=== PATIENT | male | born 1960 | race Caucasian/White ===

== ENCOUNTER 2020-08-11 09:52 | Inpatient (IN) ==
--- NOTE | 2020-07-15 13:35 | PAT Medication Instructions ---
Medication Instructions Date of Service July 15, 2020 Home Medications aspirin [Aspir-81] 81 mg PO QAM lisinopril 10 mg PO QAM meloxicam 7.5 mg PO QAM metformin 500 mg PO BID rosuvastatin 10 mg PO QAM ASK your surgeon for instructions meloxicam 7.5 mg PO QAM DO NOT take the morning of surgery lisinopril 10 mg PO QAM Take morning of surgery With a small sip of water, OTHERWISE NOTHING TO EAT OR DRINK AFTER MIDNIGHT: aspirin [Aspir-81] 81 mg PO QAM rosuvastatin 10 mg PO QAM Take evening before surgery metformin 500 mg PO BID Other Notes If you have any questions please call us at [phone] or [phone] or [phone] or [phone]
--- NOTE | 2020-07-15 13:55 | Anesthesiology Consultation ---
Date of Service July 15, 2020 Assessment & Plan (1) Encounter for pre-operative examination: COVID Status: As of 07/15 assessment, patient denies travel to endemic area, known exposure/sick contacts, or symptoms of COVID19. Patient instructed that they and their household members must follow strict social distancing guidelines, wear a mask in public and avoid travel for 14 days prior to surgery. Preoperative COVID19 testing to be completed prior to surgery per surgeon's arra ngdenis. Patient made aware to self-isolate as much as possible between COVID testing and surgery. Chart Review Chart Review: Acceptable Risk for Surgery and Patient seen in Pre Admission Testing Teaching & Discussion Instructed NPO after midnight before surgery, except medications with 15 cc of water. Medication instructions provided according to the PAT guidelines. History Surgery Operation Date: 08/11/20 09:15 Proposed Procedures p Left Total Knee Arthroplasty - Hermes Acuña DO Height/Weight Height: 5 ft 10 in Weight: 92.5 kg Allergies Allergy/AdvReac Type Severity Reaction Status Date / Time No Known Allergies Allergy Verified 07/13/20 08:12 Medications Home Medications Medication Instructions Recorded Confirmed Last Taken aspirin [Aspir-81] 81 mg PO QAM 07/13/20 07/13/20 Unknown meloxicam 15 mg PO QAM 07/13/20 07/15/20 Unknown metformin 500 mg PO BID 07/13/20 07/13/20 Unknown lisinopril-hydrochlorothiazide 1 tab PO QAM 07/15/20 07/15/20 Unknown multivitamin with minerals [Men's 1 tab PO QAM 07/15/20 07/15/20 Unknown One Daily] pravastatin 40 mg PO QAM 07/15/20 07/15/20 Unknown Past Medical History Medical History (Updated 07/16/20 @ 10:31 by Sudhir Joya) Cervical stenosis of spine Diabetes mellitus, type 2 on metformin daily History of anesthesia reaction per 2012 records, (see Dr. Vic Joshua's progress note), pt had an episode of hypotension (82/43) in PACU after lumbar spinal fusion @ [facility] on 07/2013, normalized/corrected with IV fluids and ephedrine, no further issues noted Pt stated that is the only time he has ever had an issue with anesthesia. Hyperlipidemia Hypertension Osteoarthritis Tinnitus of both ears Transient ischemic attack (TIA) roughly 2009 ? now on ASA 81mg. Exercise / Class Metabolic Activity II 4-5 Yardwork/Stairs/Walk up hill (currently limited by knee pain) Past Family History Family History Father Family history of diabetes mellitus Mother Family history of diabetes mellitus Family history of reaction to anesthesia difficulty waking Grandmother (Maternal) Family history of diabetes mellitus Uncle Family history of diabetes mellitus Aunt Family history of diabetes mellitus Past Surgical History Surgical History History of arthroscopy of left knee History of arthroscopy of right knee History of carpal tunnel release of both wrists History of colonoscopy with polypectomy History of lumbar spinal fusion History of tooth extraction Past Anesthesia History No Family Hx of Anesthesia Complications and Other Per Dr. Vic Joshua's note pt had an episode of hypotension during lumbar spinal fusion @ [facility] on 07/2013 and received IV fluids and ephedrine, no further issues noted Pt stated that is the only time he has ever had an issue with anesthesia. History of PONV No Hx of PONV and Hx of Motion Sickness (BUT pt reports terrible headache with scopolamine patch) Social History Smoking Status: Never smoker tobacco type: smokeless tobacco Do You Dip or Chew Tobacco: Yes (1 can every 3-4 days, advised none AM DOS) Hx Alcohol Use: Yes Alcohol type: beer alcohol intake frequency: other Alcohol Intake Frequency Comment: roughly 6 beers in a year Hx Substance Use: No substance use type: does not use Review of Systems Pt denies any recent chest pain, shortness of breath, palpitations, cough, fever, URI, or uncontrolled acid reflux. Physical Exam Vital Signs BP: 134/84 P: 89bpm SPO2: 97% RA T: 97.8 F R: 14 ENMT Mouth: + dental restorations (many crowns) and + small oral opening; no chipped teeth and no loose teeth Mallampati Class: III Neck normal visual inspection and + facial hair (short [place]); neck extension not limited Respiratory normal respiratory effort Auscultation: lungs clear to auscultation bilaterally Cardiovascular Rate/Rhythm: regular rate and regular rhythm Heart Sounds: no murmur Extremities: no edema Testing Laboratory Results 07/15/20 14:05 07/15/20 14:05 PT 10.3 Seconds (9.0-12.0) 07/15/20 14:05 INR 1.0 (0.9-1.1) 07/15/20 14:05 APTT 26.5 Seconds (21.0-31.0) 07/15/20 14:05 Hemoglobin A1c 6.4 % (4.5-5.6) H 07/15/20 14:05 Urine Color Yellow 07/15/20 13:37 Urine Appearance Clear (Clear) 07/15/20 13:37 Urine pH 5.5 (4.5-7.5) 07/15/20 13:37 Ur Specific [place] 1.011 (1.000-1.030) 07/15/20 13:37 Urine Protein Negative (Negative) 07/15/20 13:37 Urine Glucose (UA) Negative (Negative) 07/15/20 13:37 Urine Ketones Negative (Negative) 07/15/20 13:37 Urine Nitrite Negative (Negative) 07/15/20 13:37 Ur Leukocyte Esterase Negative (Negative) 07/15/20 13:37 Blood Type A Positive 07/15/20 14:05 Antibody Screen NEGATIVE 07/15/20 14:05 Electrocardiogram Date: 07/15/20 Findings: + NSR @ (88bpm) Chest X-Ray Date: 07/15/20 Findings: + NAD
[2020-07-15 14:41] LABS: Basophils # (auto) 0.01 K/uL (0-0.2); Basophils % (auto) 0.2 %; Eosinophils # (auto) 0.05 K/uL (0-0.5); Eosinophils % (auto) 0.9 %; Hemoglobin 14.9 g/dL (14.0-18.0); Immature Granulocytes # (auto) 0.02 K/uL (0.00-0.02); Immature Granulocytes % (auto) 0.4 %; Lymphocytes # (auto) 1.66 K/uL (1.2-3.4); Lymphocytes % (auto) 29.1 %; Mean Corpuscular Hgb Conc 35.5 g/dL (32-36); Mean Corpuscular Volume 87.5 fL (80-100); Mean Platelet Volume 9.4 fL (7.4-10.4); Monocytes # (auto) 0.55 K/uL (0.11-0.59); Monocytes % (auto) 9.6 %; Neutrophils # (auto) 3.41 K/uL (1.4-6.5); Neutrophils % (auto) 59.8 %; Platelet Count 296 K/uL (130-400); RDW Coefficient of Variation 12.4 % (11.5-14.5); RDW Standard Deviation 39.7 fL (36.4-46.3)
[2020-07-15 14:52] LABS: Albumin Level 3.8 gm/dl (3.4-5.0); BUN Creatinine Ratio 16.3 (10-20); Calcium 8.9 mg/dl (8.5-10.1); Creatinine Clr Calc Pharmacy 101.7 ml/min; Est GFR (African American) 108.5; Est GFR (Non-African American) 93.6; Potassium 3.7 mmol/L (3.5-5.1)
[2020-07-15 14:55] LABS: Partial Thromboplastin Ratio 0.9; Partial Thromboplastin Time 26.5 Seconds (21.0-31.0); Prothrombin Time 10.3 Seconds (9.0-12.0)
[2020-07-15 14:56] LABS: Appearance Urine Clear (Clear); Bilirubin Urine Negative (Negative); Blood Urine Negative (Negative); Color Urine Yellow; Glucose Urine UA Negative (Negative); Ketones Urine Negative (Negative); Leukocyte Esterase Urine Negative (Negative); Nitrite Urine Negative (Negative); Protein Urine Negative (Negative); Specific Gravity Urine 1.011 (1.000-1.030); Urobilinogen Urine Negative (Negative); pH Urine 5.5 (4.5-7.5)
--- NOTE | 2020-07-15 15:08 | XRay Report ---
TWO VIEW CHEST CLINICAL HISTORY: Preoperative examination. FINDINGS: PA and lateral chest radiographs are obtained. No prior studies are available for compariso n at the time of dictation. The cardiomediastinal silhouette is unremarkable. The lungs and pleural spaces are clear. There is no pneumothorax. The bony thorax appears intact. IMPRESSION: No active disease in the chest. ACT 112: Negative or not required by law. Electronically signed by: Junior Lamas M.D. 07/15/2020 3:06 PM
--- NOTE | 2020-07-15 15:27 | Electrocardiogram Report ---
Test Reason : Blood Pressure : / mmHG Vent. Rate : 088 BPM Atrial Rate : 088 BPM P-R Int : 156 ms QRS Dur : 092 ms QT Int : 366 ms P-R-T Axes : 060 012 025 degrees QTc Int : 442 ms Normal sinus rhythm Normal ECG When compared with ECG of 26-JUL-2013 15:57, No significant change was found Confirmed by Jason Mao ([id number]) on 07/15/2020 3:26:33 PM Referred By: Hermes Acuña Confirmed By:Jason Mao
[2020-07-16 05:42] LABS: Estimated Average Glucose 137 mg/dl; Hemoglobin A1C 6.4 % (4.5-5.6)
--- NOTE | 2020-08-10 09:32 | History & Physical Report ---
Date of Service August 11, 2020 Assessment & Plan (1) Degenerative joint disease of left knee: I have indicated the patient for left total knee replacement. The risks, benefits and complications of surgery were explained to the patient which include but not limited to infection, acute blood loss, DVT/PE, injury to nerves, vessels, bone, soft tissue, arthrofibrosis, chronic pain, failure of the prosthesis, knee dislocation, leg length discrepancy, need for additional surgery, cardiac and pulmonary events and . The patient wished to proceed with surgery and informed consent was obtained at this time. We will plan for ASA BID post-operatively for DVT prophylaxis. Upon discharge the patient will be discharged home with home health services. Appropriate clearances by PCP we re obtained. History of Present Illness Chief Complaint: Left knee pain/DJD Primary Care Provider: Ck Al DO The patient is a 60 year old male who presents with complaints of severe left knee pain and DJD. The patient has failed outpatient conservative treatments to this point which included NSAIDs, IA corticosteroid injection, home e xercise/walking program. The patient's pain and limited function have progressed to the point where they severely hinder their activities of daily living and they no longer tolerate exercise programs. They are requesting to proceed with total knee replacement surgery. Allergies Allergy/AdvReac Type Severity Reaction Status Date / Time No Known Allergies Allergy Verified 08/11/20 10:21 Home Medications Home Medications Medication Instructions Recorded Confirmed Type aspirin [Aspir-81] 81 mg PO QAM 07/13/20 08/11/20 History meloxicam 15 mg PO QAM 07/13/20 08/11/20 History metformin 500 mg PO BID 07/13/20 08/11/20 History lisinopril-hydrochlorothiazide 1 tab PO QAM 07/15/20 08/11/20 History multivitamin with minerals [Men's 1 tab PO QAM 07/15/20 08/11/20 History One Daily] pravastatin 40 mg PO QAM 07/15/20 08/11/20 History Past Med/Surg History Medical History Cervical stenosis of spine Diabetes mellitus, type 2 on metformin daily Hyperlipidemia Hypertension Osteoarthritis Tinnitus of both ears Transient ischemic attack (TIA) roughly 2009 ? now on ASA 81mg. Surgical History History of anesthesia reaction per 2013 records, (see Dr. Vic Joshua's progress note), pt had an episode of hypotension (82/43) in PACU after lumbar spinal fusion @ [facility] on 07/2013, normalized/corrected with IV fluids and ephedrine, no further issues noted Pt stated that is the only time he has ever had an issue with anesthesia. History of arthroscopy of left knee History of arthroscopy of right knee History of carpal tunnel release of both wrists History of colonoscopy with polypectomy History of lumbar spinal fusion History of tooth extraction Family History Father Family history of diabetes mellitus Mother Family history of diabetes mellitus Family history of reaction to anesthesia difficulty waking Grandmother (Maternal) Family history of diabetes mellitus Uncle Family history of diabetes mellitus Aunt Family history of diabetes mellitus Social History Smoking Status: Never smoker Second Hand Exposure: No; Do You Dip or Chew Tobacco: Yes (1 can every 3-4 days, advised none AM DOS); Tobacco Cessation Education Requested by Patient: No Hx Alcohol Use: Yes Alcohol type: beer Hx Substance Use: No Preferred Language: Swedish Communication Ability: Effective Dramatic Arts Historian Required: No Beliefs That Will Affect Care: None Current Living Situation: Spouse and Family Current Living Situation Comment: Lives with and son and his Other Information That Helps Us Care for You: No Feels Safe at Home: Yes Safety Concerns: Feels Safe At This Time Assistive Devices: Glasses Assistive Devices Comment: reading glasses Physical Exam Physical Exam: LLE NVSI +EHL/FHL/TA/GS SILT grossly, +2 DP pulse, compartments soft NT, painful ROM 0-120 degrees flexion, +crepitus. Constitutional: WD/WN, vitals as above Eyes: PERRL, conjunctivae normal, anicteric sclerae ENMT: external ear and nose normal, oropharynx normal Neck: trachea midline, no thyromegaly Respiratory: normal respiratory effort, lungs clear to auscultation Cardiovascular: RRR, no murmur, no edema Gastrointestinal (Abdomen): normal bowel sounds, soft, nontender, no hepatosplenomegaly Musculoskeletal: no cyanosis or clubbing, extremities motor strength 5/5 Skin: no rashes, warm and dry Neurologic: patellar DTR's 2+ bilat, sensation intact Psychiatric: A+Ox3, euthymic affect Lymphatic: no cervical or axillary lymphadenopathy Results & Data Results & Data ([facility]) Diagnostic Findings Multiple views of the knee demonstrates severe tricompartmental DJD with complete loss of the medial joint space. +osteophytes, +sclerosis, +subchondral cysts. Pre Admission Testing Addendum Laboratory Results 07/15/20 14:05 07/15/20 14:05 PT 10.3 Seconds (9.0-12.0) 07/15/20 14:05 INR 1.0 (0.9-1.1) 07/15/20 14:05 APTT 26.5 Seconds (21.0-31.0) 07/15/20 14:05 Hemoglobin A1c 6.4 % (4.5-5.6) H 07/15/20 14:05 Urine Color Yellow 07/15/20 13:37 Urine Appearance Clear (Clear) 07/15/20 13:37 Urine pH 5.5 (4.5-7.5) 07/15/20 13:37 Ur Specific [place] 1.011 (1.000-1.030) 07/15/20 13:37 Urine Protein Negative (Negative) 07/15/20 13:37 Urine Glucose (UA) Negative (Negative) 07/15/20 13:37 Urine Ketones Negative (Negative) 07/15/20 13:37 Urine Nitrite Negative (Negative) 07/15/20 13:37 Ur Leukocyte Esterase Negative (Negative) 07/15/20 13:37 Blood Type A Positive 07/15/20 14:05 Antibody Screen NEGATIVE 07/15/20 14:05
[~2020-08-11 09:52] MED LIST: ACETAMINOPHEN 500 MG TAB PO SCH; BUPIVACAINE 0.5 % 5 MG/1 ML PF 10ML VIAL ONE; CEFAZOLIN 2000MG 2,000 MG/15 ML SYR IV SCH; CeleBREX 200 MG CAP PO SCH; FAMOTIDINE 20 MG TAB PO SCH; GABAPENTIN 600 MG DOSE PO SCH; LR 500ML BOLUS, THEN 15ML/HR IV SCH; METOCLOPRAMIDE HCL 10 MG TABLET PO SCH; ROPIVACAINE 0.5% 5 MG/ML 30 ML VIAL ONE; ROPIVACAINE 0.5% HCL/PF 150 MG, BUPIVACAINE 0.5% MPF 30 ML, EPINEPHrine 30MG/30ML (OR U... INSTIL SCH; TRANEXAMIC ACID 1,000 MG **IV Intra-op IV SCH; TRANEXAMIC ACID 1,000 MG **IV Pre-op IV SCH; dexAMETHasone 4 MG TAB PO SCH
[2020-08-11] MEDS ORDERED: MIDAZOLAM HCL 1 MG/ML 2ML VIAL ONE (11:27)
[2020-08-11] MEDS ORDERED: fentaNYL citrate 100 MCG/2 ML VIAL ONE (11:28)
[2020-08-11] MEDS ORDERED: HYDROmorphone INJ 1 MG/ML SYRINGE IV PRN (11:40)
[2020-08-11] MEDS ORDERED: ePHEDrine sulfate 50 MG/ML AMP IV PRN (11:40)
[2020-08-11] MEDS ORDERED: ATROPINE SULFATE 0.1 MG/ML 10ML SYR IV PRN (11:40)
[2020-08-11] MEDS ORDERED: ONDANSETRON INJ 2 MG/ML 2 ML VIAL IV PRN ×2 (11:40→16:01)
--- NOTE | 2020-08-11 11:58 | History & Physical Bridge Note ---
Date of Service August 11, 2020 History & Physical Bridge Note I have examined the patient, reviewed the History & Physical and in the interval since the performance of the History & Physical I have noted the following changes of clinical significance: no changes noted
[2020-08-11] MEDS ORDERED: ORTHO JOINT ANESTHETIC ONE (12:35)
[2020-08-11] MEDS ORDERED: BACITRACIN INJ 50,000 UNIT VIAL ONE (12:36)
[2020-08-11] MEDS ORDERED: PROPOFOL IV EMULSION 10 MG/ML 20 ML VIAL IV ONE ×3 (13:19→14:51)
--- NOTE | 2020-08-11 14:28 | Post Operative Brief Note ---
Immediate Post Op Note v1 Date of Surgery August 11, 2020 Pre & Post Diagnosis Operation Date: 08/11/20 12:05 Pre-Op Diagnosis: Left Knee Degenerative Joint Disease Post-Op Diagnosis: Left Knee Degenerative Joint Disease I identified the patient and participated in the time-out.: Yes Procedure Operation Date: 08/11/20 12:05 Actual Procedures p Left Total Knee Arthroplasty(Left) - Hermes Acuña DO Surgeon Hermes Acuña DO Mother Repairer Juan Powell Estimated Blood Loss 50 Findings Consistent with Post-Op Diagnosis Fluids 1700 cc LR Specimens Proximal tibia and distal femur bone fragments Anesthesia Type Spinal MAC Complications none Disposition Disposition: Recovery Room Overlapping Procedure I was present for: the critical portions of procedure. I was immediately available: during the entire case. Back up surgeon: was not required during procedure.
--- NOTE | 2020-08-11 14:32 | Operative Report ---
Post Operative Report Pre & Post Diagnosis Operation Date: 08/11/20 12:05 Pre-Op Diagnosis: Left Knee Degenerative Joint Disease Post-Op Diagnosis: Left Knee Degenerative Joint Disease I identified the patient and participated in the time-out.: Yes Procedure Operation Date: 08/11/20 12:05 Actual Procedures p Left Total Knee Arthroplasty(Left) - Hermes Acuña DO Surgeon Hermes Acuña, Housing Project Manager Juan Powell Estimated Blood Loss 50 Findings Consistent with Post-Op Diagnosis Fluids 1700 cc LR Specimens Proximal tibia and distal femur bone fragments Anesthesia Type Spinal MAC Complications none Disposition Disposition: Recovery Room Indications The patient is a 60-year-old male presents with long history of severe left knee tricompartmental DJD and failed outpatient conservative treatments including NSAIDs, bracing, injections and home walking/exercise program. The patient's symptoms have progressed to the point where it has been difficult to perform normal activities of daily living. I have indicated the patient for a left total knee arthroplasty, the risks and benefits and complications of the procedure include but are not limited to infection bleeding damage to bone, nerves, vessels, surrounding soft tissue, blood clots, loss of function, leg length discrepancy, dislocation, failure of the components, need for additional surgery and . The patient wished to proceed with surgery at this time and informed consent was obtained. Appropriate clearances were obtained. Description of Procedure COMPONENTS USED: Romeo persona knee system: Femur size 9, Tibia size G, Tibial articulating surface 10 PS, Patella 38 mm Following induction of spinal anesthesia, a tourniquet was applied to the proximal aspect of the thigh and the patient's left leg was prepped and draped in the usual sterile manner. A timeout was performed, patient identified and site south confirmed. Appropriate pre-operative IV antibiotics were given. The limb was exsanguinated with an Esmarch bandage and tourniquet was inflated to 300 mmHg. A longitudinal midline incision was made over the anterior knee. Subcutaneous tissue was sharply dissected down to fascia. Electrocautery was used for hemostasis. Next a parapatellar arthrotomy was performed. Patella was everted and the knee was flexed. A Guevara retractor was used to expose the synovium above on the anterior aspect of the femur and removed down to bone. Next, the anterior fat pad was removed to aid in visualization. The medial face of the tibia was cleared of soft tissue first with a Bovie and a wang elevator. This tissue was retracted posteriorly using a blunt Hohmann. Next, the extra-medullary tibial cutting guide was placed to the anterior aspect of the tibia. The tibia resection level was set taking 2mm from the defective tibial condyle. Resection depth was once again confirmed with james wing. The medial and lateral collateral ligament was protected with two Hohmann retractors. The tibia guide was removed and proximal tibial bone fragment removed utilizing straight osteotome, electrocautery and Annetta. Next, the distal femur intramedullary canal was accessed utilizing the step drill. The intramedullary distal femur cutting guide was placed into the canal and pinned into place. The distal femur was cut on the 5 degree setting. Next the cutting guide was removed and the femur was sized. Care was taken to ensure appropriate senior sas developer all rotation and 3 degree holes were drilled. A size 9 4-in-1 cutting block was placed on the distal end of the femur and secured into place with two short headed screws. Two bent Hohmann retractors were placed to protect the medial and lateral collateral ligaments. The oscillating saw was used to cut anterior, posterior, anterior chamfer and posterior chamfer. The four and one cutting block was removed and bone fragments excised. Laminar natural resource technician was placed laterally and the ACL and PCL were removed followed by the medial meniscus and posterior medial osteophytes. Aquamantys was utilized for any posterior medial bleeders and Orthomix injected into the posterior medial capsule. A laminar natural resource technician was then placed in the medial compartment and the lateral meniscus and posterior osteophytes were removed. Aquamantys was utilized for any posterior lateral bleeders and Orthomix injected into the posterior lateral capsule. Next, drop antonella and spacer block were placed with the leg in flexion and extension to assess alignment and flexion/extension gaps. Next, the proximal tibia was assessed and two bent Hohmans were placed medial and lateral to aid in visualization. The appropriate tibia size and rotation was selected and a size G tibial plate was pinned into place with appropriate rotation. Preparation of the tibia was completed utilizing the matching tibial drill and broach. I then turned my attention back to the distal femur in a trial femoral component was impacted into place. Appropriate femoral width was assessed and selected. Next the femur PS box cut guide was placed and cut made with the reciprocal saw and the PS box provisional placed. A trial size 10 PS tibia articular tray was placed and varus-valgus balance assessed in 0 degrees of extension and 30, 60 and 90 degrees of flexion. A final tibial articular surface size 10 PS was chosen. Assess was gained to the patella and caliper utilized to measure width. The patella reamer was utilized and remaining bone removed with oscillating saw. A size 38 patella button was selected and the patella pegs drilled. Trial patella button was placed and tracking was assessed. The knee was found to be well balanced, well aligned with excellent patella tracking. The trials were removed and final components were obtained and assembled. The knee was irrigated copiously with sterile saline solution mixed with bacitracin. Access to the proximal tibia was once again obtained utilizing to the Hohmans and the proximal tibia and distal femur were dried with lap sponges. The final components were cemented into place and all excess cement was removed. A trial tibial articular surface was placed while cemented hardened. Knee stability was once again assessed and the final component inserted. A Betadine soak was performed. After 3 minutes, the knee was once more irrigated with copious sterile saline solution with bacitracin. The knee was injected with the remaining Orthomix which includes a combination of Ropivicaine 0.5% 150mg, Bupivicaine 0.5%/Epinephrine 1:200,000 30ml, Toradol 30mg, Dexamethasone 4mg, Ketamine 10mg, Clonidine 100mcg and NSS 30ml solution. The capsulotomy was closed with #1 Vicryl followed by subcutaneous closure with 2-0 Vicryl suture and a 3-0 V-lock suture. Skin closure was performed using Prineo dressing followed by Telfa, 4 x 4s and jesús wrap. Tourniquet was deflated at 98 minutes. The patient tolerated the procedure well and was taken to the PACU in stable condition. Due to the complex nature of the procedure, the entire surgery was performed with the operational assistance of Juan Powell PA-C. The assistant store leader, under direct supervision, was involved in the actual performance of all aspects of the surgical procedure including patient positioning, hemostasis, tissue retraction, instrument management and wound closure. I attest to the content of the Intraoperative Record and any orders documented therein. Any exceptions are noted below.
[2020-08-11] MEDS ORDERED: ONDANSETRON INJ 2 MG/ML 2 ML VIAL ONE (14:47)
--- NOTE | 2020-08-11 15:18 | XRay Report ---
XR knee LT 1 or 2V routine CLINICAL HISTORY: Surgical Post Op COMPARISON: None. DISCUSSION: There are postsurgical changes of a total left knee arthroplasty and patellar resurfacing . The femoral tibial components appear well seated. There is gas present within the soft tissues cons istent with recent surgery. IMPRESSION: Postsurgical changes of a total left knee arthroplasty. ACT 112: Negative or not required by law. Electronically signed by: Hamlet Gonzalez M.D. 08/11/2020 3:17 PM
--- NOTE | 2020-08-11 15:28 | Anesthesiology Progress Note ---
Date of Service August 11, 2020 Anesthesia Post Procedure Vital Signs Vital Signs: Temp Pulse Pulse Resp BP BP Pulse Ox 08/11/20 15:20 74 17 102/62 94 08/11/20 15:10 72 16 111/68 95 08/11/20 15:03 36.9 C 78 13 106/51 L 98 08/11/20 12:40 68 16 122/61 99 08/11/20 12:30 70 16 117/71 100 08/11/20 11:23 37 C 68 18 137/78 96 08/11/20 10:55 37.2 C 86 18 142/96 H 97 Transfer of Care Handoff Completed per policy Notes Mental Status: alert / awake / arousable Patient Amnestic to Procedure: Yes Nausea / Vomiting: adequately controlled Pain: adequately controlled Airway Patency, RR, SpO2: stable & adequate BP & HR: stable & adequate Hydration State: stable & adequate Anesthetic Complications: no major complications apparent
[2020-08-11] MEDS ORDERED: SODIUM CHLORIDE 0.9% 1000ML 1,000 ML IV SCH (16:01)
[2020-08-11] MEDS ORDERED: MAGNESIUM HYDROXIDE SUSP 30 ML UDC PO PRN (16:01)
[2020-08-11] MEDS ORDERED: DiphenhydrAMINE HCL 50 MG/ML VIAL IV PRN (16:01)
[2020-08-11] MEDS ORDERED: NALOXONE HCL 0.4 MG/1 ML VIAL/CARP IV PRN (16:01)
[2020-08-11] MEDS ORDERED: bisacodyL 10 MG SUPP PR PRN (16:01)
[2020-08-11] MEDS ORDERED: METOCLOPRAMIDE HCL INJ 5 MG/ML 2 ML VIAL IV PRN (16:01)
[2020-08-11] MEDS ORDERED: HYDROmorphone INJ 0.5 MG/0.5 ML SYR IV PRN (16:01)
[2020-08-11] MEDS: KETOROLAC TROMETHAMINE 15 MG/ML VIAL IV SCH ×2 (16:20→21:21)
--- NOTE | 2020-08-11 17:39 | History & Physical Report ---
Date of Service August 11, 2020 Assessment & Plan (1) Status post left knee replacement: This is a 60yo M with a PMH of HTN, DM II, HLD and other medical problems listed below who is POD#0 s/p L TKA by Dr. Acuña. -POD#0 s/p L TKA by Dr. Acuña. -Pt is doing well post-operatively -Per ortho for pain control, wound care, anticoagulation and activities -Monitor H&H (EBL: 50 ml), continue incentive spirometry, PT/OT when appropriate (2) Diabetes mellitus, type 2: A1c of 6.4 in June 2020 -Hold home agents -SSI while in-patient -BSG AC HS (3) Hypertension: Continue lisinopril-hctz tomorrow (4) Transient ischemic attack (TIA): Occurred in 2009. Taking baby aspirin (5) Hyperlipidemia: Continue statin DVT Ppx: asa 325mg BID per primary service PCP: Mikaela Patient seen in collaboration with Dr. Bae. Please see addendum. Thank you for this consultation. We will follow the patient with you during their hospital stay. You can reach a member of the [facility] Hospitalist Team 12/06 via pager @ [phone]. Admission and Anticipated Discharge Date Admission Date: August 11, 2020 History of Present Illness Chief Complaint: post op med mgmt Primary Care Provider: Ck Al, DO This is a 60yo M with a PMH of HTN, DM II, HLD and other medical problems listed below who is POD#0 s/o L TKA by Dr. Acuña. Patient is doing well post- operatively. Denies any surgical site pain. Tolerating diet without issue. No fever, chills, lightheadedness, headache, chest pain, palpitation, shortness of breath, dysuria, diarrhea constipation. PCP is Dr. Al. Allergies Allergy/AdvReac Type Severity Reaction Status Date / Time No Known Allergies Allergy Verified 08/11/20 10:21 Home Medications Home Medications Medication Instructions Recorded Confirmed Type aspirin [Aspir-81] 81 mg PO QAM 07/13/20 08/11/20 History meloxicam 15 mg PO QAM 07/13/20 08/11/20 History metformin 500 mg PO BID 07/13/20 08/11/20 History lisinopril-hydrochlorothiazide 1 tab PO QAM 07/15/20 08/11/20 History multivitamin with minerals [Men's 1 tab PO QAM 07/15/20 08/11/20 History One Daily] pravastatin 40 mg PO QAM 07/15/20 08/11/20 History Past Med/Surg History Medical History (Updated 08/11/20 @ 18:33 by Loree Harrington PA-C) Cervical stenosis of spine Diabetes mellitus, type 2 on metformin daily Hyperlipidemia Hypertension Osteoarthritis Tinnitus of both ears Transient ischemic attack (TIA) roughly 2009 ? now on ASA 81mg. Surgical History (Updated 08/11/20 @ 18:33 by Loree Harrington PA-C) History of anesthesia reaction per 2013 records, (see Dr. Vic Joshua's progress note), pt had an episode of hypotension (82/43) in PACU after lumbar spinal fusion @ [facility] on 07/2013, normalized/corrected with IV fluids and ephedrine, no further issues noted Pt stated that is the only time he has ever had an issue with anesthesia. History of arthroscopy of left knee History of arthroscopy of right knee History of carpal tunnel release of both wrists History of colonoscopy with polypectomy History of lumbar spinal fusion History of tooth extraction Family History Father Family history of diabetes mellitus Mother Family history of diabetes mellitus Family history of reaction to anesthesia difficulty waking Grandmother (Maternal) Family history of diabetes mellitus Uncle Family history of diabetes mellitus Aunt Family history of diabetes mellitus Social History (Updated 08/11/20 @ 18:40 by Loree Harrington PA-C) Smoking Status: Never smoker Second Hand Exposure: No; Do You Dip or Chew Tobacco: Yes (1 can every 3-4 days, advised none AM DOS); Tobacco Cessation Education Requested by Patient: No Hx Alcohol Use: Yes Alcohol type: beer Alcohol Intake Frequency: Monthly or Less Hx Substance Use: No Preferred Language: Portuguese Communication Ability: Effective Process Control Tech Required: No Beliefs That Will Affect Care: None Current Living Situation: Spouse and Family Current Living Situation Comment: Lives with and son and his Other Information That Helps Us Care for You: No Feels Safe at Home: Yes Safety Concerns: Feels Safe At This Time Assistive Devices: Glasses Assistive Devices Comment: reading glasses Review of Systems Review of Systems: At least ten systems reviewed and negative except as noted in the HPI. Physical Exam Physical Exam: General Appearance: WD/WN, vitals as above, NAD, sitting up in bed, pleasant, conversing easily Head: normocephalic, atraumatic Eyes: normal inspection, PERRL, conjunctivae normal, anicteric sclerae ENT: external ear and nose normal, oropharynx normal Neck: normal visual inspection, trachea midline, no thyromegaly Respiratory: normal respiratory effort, lungs clear to auscultation, no wheeze, rales, rhonchi Cardiovascular: regular rate, rhythm, no murmur, normal peripheral pulses, no BLE edema Abdomen/GI: normal bowel sounds, soft, nontender, no hepatosplenomegaly Extremities/Musculoskeletal: + L knee with surgical dressing c/d/i and distally NVI. No cyanosis or clubbing, extremities motor strength 5/5 Neurologic: PERRL, CN's II-XI intact bilaterally and moves all extremities Psychiatric: A+Ox3, euthymic affect Skin: no rashes, normal color, warm/dry Results & Data Results & Data ([facility]) Vital Signs (Past 12 Hours) Vital Signs Temp Pulse Pulse Resp BP BP Pulse Ox 08/11/20 16:57 36.5 C 65 16 122/75 99 08/11/20 16:31 36.5 C 68 18 119/76 98 08/11/20 16:01 36.5 C 64 16 124/73 96 08/11/20 15:45 36.4 C L 70 17 106/67 98 08/11/20 15:30 70 12 114/71 98 08/11/20 15:20 74 17 102/62 94 08/11/20 15:10 72 16 111/68 95 08/11/20 15:03 36.9 C 78 13 106/51 L 98 08/11/20 12:40 68 16 122/61 99 08/11/20 12:30 70 16 117/71 100 08/11/20 11:23 37 C 68 18 137/78 96 08/11/20 10:55 37.2 C 86 18 142/96 H 97 Supervising Physician Co-Signing Physician Notes I saw this patient with the physician campus administrative assistant, I participated in the history, physical, review of systems, and physical exam. I reviewed the medications with the patient and the physician campus administrative assistant and helped reconcile the medications. I helped take a detailed family and social history as well. I formulated the assessment and plan personally with the physician campus administrative assistant and went over it with the patient. Physical Exam Gen-AAO x 3, NAD, Afebrile Head-NCAT, EOMI, PERRLA, Anicteric Sclera, No Posterior Pharyngeal Erythema Neck-Supple, No JVD, No Thyromegaly, No Masses, No LAD, No Bruits Lungs-Clear to Auscultation Bilaterally, No Rales, No Rhonchi, No Wheezing, No Crepitus Chest-No S4, +S1, +S2, No S3, No Murmurs, No Rubs, No Gallops, No Ectopy Abdomen-Soft, Bowel Sounds Present, Non Tender, Non Distended, No Hepatomegaly, No Splenomegaly, No Palpable Masses, No Rebound, No Rigidity, No Guarding Musculoskeletal-Full Range of Motion Bilaterally, No CVAT Extremities-No Cyanosis, No Clubbing, No Edema Nuero-Cranial Nerves II-XII grossly intact, Motor WNL, DTRs WNL, Strength WNL, Non Focal Psych-Normal Mood
[2020-08-11] MEDS ORDERED: GLUCOSE 10 TABS/TUBE PO PRN (17:44)
[2020-08-11] MEDS ORDERED: GLUCAGON FOR INJ 1 MG VIAL SQ PRN (17:44)
[2020-08-11] MEDS ORDERED: CARBOHYDRATES FOR HYPOGLYCEMIA PO PRN (17:44)
[2020-08-11] MEDS ORDERED: GLUCOSE 40% GEL 15 GM TUBE PO PRN (17:44)
[2020-08-11] MEDS ORDERED: DEXTROSE 50% 50 ML SYRINGE IV PRN (17:44)
[2020-08-11] MEDS ORDERED: PHARMACY GLYCEMIC MGMT CONSULT PRN (18:05)
[2020-08-11] MEDS ORDERED: NovoLIN-N (NPH) PER UNIT CHARGE SQ ONE (18:30)
[2020-08-11] MEDS ORDERED: INSULIN ASPART 100 UNITS/ML 3 ML PEN SC ONE (18:30)
[2020-08-11] MEDS ORDERED: INSULIN ASPART 100 UNITS/ML 3 ML PEN SC SCH (18:40)
--- NOTE | 2020-08-11 18:45 | Orthopedic Progress Note ---
Date of Service August 11, 2020 Assessment & Plan (1) Degenerative joint disease of left knee: Status post left total knee arthroplasty -Ancef x24 -DVT prophylaxis: SCDs, teds, ASA twice daily -Weight-bear as tolerates left lower extremity -PT/OT -Postoperative x-ray demonstrates a well aligned well fixed prosthesis without fracture or dislocation. -A.m. labs -DC planning Admission and Anticipated Discharge Date Admission Date: August 11, 2020 Subjective Post Operative Progress Note Patient seen sitting up in bed, comfortable, denies complaints, pain well controlled, no acute issues. Review of Systems Review of Systems: All systems reviewed & are unremarkable except as noted in HPI & below Constitutional: as per Subjective / HPI Physical Exam Physical Exam: LLE NVSI +EHL/FHL/TA/GS SILT grossly, +2 DP pulse, compartments soft NT, dressing cdi. Constitutional: WD/WN, vitals as above Results & Data ([facility]) Vital Signs (Past 12 Hours) Vital Signs Temp Pulse Pulse Resp BP BP Pulse Ox 08/11/20 18:02 36.5 C 71 18 136/90 99 08/11/20 16:57 36.5 C 65 16 122/75 99 08/11/20 16:31 36.5 C 68 18 119/76 98 08/11/20 16:01 36.5 C 64 16 124/73 96 08/11/20 15:45 36.4 C L 70 17 106/67 98 08/11/20 15:30 70 12 114/71 98 08/11/20 15:20 74 17 102/62 94 08/11/20 15:10 72 16 111/68 95 08/11/20 15:03 36.9 C 78 13 106/51 L 98 08/11/20 12:40 68 16 122/61 99 08/11/20 12:30 70 16 117/71 100 08/11/20 11:23 37 C 68 18 137/78 96 08/11/20 10:55 37.2 C 86 18 142/96 H 97
--- NOTE | 2020-08-11 18:49 | Pharmacy Report ---
Glycemic Control Consultation - Date of Service August 11, 2020 - Scope Scope: Glycemic Pharmacist consulted for glycemic control and to write orders per [facility] inpatient glycemic control protocol. - Objective Weight: 91 kg Accuchecks BSG (last 24hrs): 08/11/20 08/11/20 08/11/20 10:13 15:23 17:22 POC Glucose 104 H 154 H 134 H HbA1c: Hemoglobin A1c 6.4 % (4.5-5.6) H 07/15/20 14:05 - Recent Pertinent Medications Outpatient Anti-diabetic Regimen: * Metformin 500 mg PO BIDM * A1c = 6.4% (07/15/2020) Risk Factors for Insulin Resistance: * Steroids: * Dexamethasone 8 mg PO x 1 pre-op * Recent Surgery: * POD #0 s/p L TKA * Diet: * T2DM - Assessment & Plan Assessment & Plan: ASSESSMENT: * 60 yo M admitted s/p left total knee arthroplasty. Pharmacy is consulted for inpatient glycemic management. Patient has T2DM controlled on Metformin monotherapy based on recent HbA1c of 6.4%. * Fasting BSG this AM was 104 mg/dL - well controlled. Post-operative BSGs were 154 and 134 mg/dL. Patient did receive pre-operative steroids x 1. * Will give 0.16 units/kg NPH x 1 to cover steroid-induced hyperglycemia. Will start novolog based on weight/stress of 3. Expect patient's insulin requirements to decrease over the next 24 hours. PLAN FOR INPATIENT GLYCEMIC CONTROL: * Holding outpatient oral diabetes medications * Basal insulin * NPH 15 units SQ x 1 * Bolus insulin * NovoLog per scale ACHS or Q6hrs while NPO * Goal Range: Low 110 mg/dL - High 140 mg/dL * Correction Factor: 20 mg/dL/unit * Nutritional / Prandial insulin per carb ratio of 1 unit per 6 grams CHO consumed * Please note that the plan above was derived based on current level of insulin resistance and hospital stress. These recommendations are appropriate for inpatient admission only. Plan of care upon discharge will need to be reassessed to avoid potential outpatient hypo/hyperglycemia. Thank you.
--- NOTE | 2020-08-11 18:50 | Hospitalist Consultation ---
Date of Consultation August 11, 2020 Assessment & Plan (1) Status post left knee replacement: This is a 60yo M with a PMH of HTN, DM II, HLD and other medical problems listed below who is POD#0 s/p L TKA by Dr. Acuña. -POD#0 s/p L TKA by Dr. Acuña. -Pt is doing well post-operatively -Per ortho for pain control, wound care, anticoagulation and activities -Monitor H&H (EBL: 50 ml), continue incentive spirometry, PT/OT when appropriate (2) Diabetes mellitus, type 2: A1c of 6.4 in June 2020 -Hold home agents -SSI while in-patient -BSG AC HS (3) Hypertension: Continue lisinopril-hctz tomorrow (4) Transient ischemic attack (TIA): Occurred in 2009. Taking baby aspirin (5) Hyperlipidemia: Continue statin DVT Ppx: asa 325mg BID per primary service PCP: Mikaela Patient seen in collaboration with Dr. Bae. Please see addendum. Thank you for this consultation. We will follow the patient with you during their hospital stay. [facility] via pager @ [phone]. Supervising Physician Co-Signing Physician Notes I saw this patient with the physician delinquent tax collection assistant, I participated in the history, physical, review of systems, and physical exam. I reviewed the medications with the patient and the physician delinquent tax collection assistant and helped reconcile the medications. I helped take a detailed family and social history as well. I formulated the assessment and plan personally with the physician delinquent tax collection assistant and went over it with the patient. Physical Exam Gen-AAO x 3, NAD, Afebrile Head-NCAT, EOMI, PERRLA, Anicteric Sclera, No Posterior Pharyngeal Erythema Neck-Supple, No JVD, No Thyromegaly, No Masses, No LAD, No Bruits Lungs-Clear to Auscultation Bilaterally, No Rales, No Rhonchi, No Wheezing, No Crepitus Chest-No S4, +S1, +S2, No S3, No Murmurs, No Rubs, No Gallops, No Ectopy Abdomen-Soft, Bowel Sounds Present, Non Tender, Non Distended, No Hepatomegaly, No Splenomegaly, No Palpable Masses, No Rebound, No Rigidity, No Guarding Musculoskeletal-Full Range of Motion Bilaterally, No CVAT Extremities-No Cyanosis, No Clubbing, No Edema Nuero-Cranial Nerves II-XII grossly intact, Motor WNL, DTRs WNL, Strength WNL, Non Focal Psych-Normal Mood History of Present Illness Reason for Consultation: post op med mgmt Attending Physician: Hermes Acuña, DO History of Present Illness This is a 60yo M with a PMH of HTN, DM II, HLD and other medical problems listed below who is POD#0 s/o L TKA by Dr. Acñua. Patient is doing well post- operatively. Denies any surgical site pain. Tolerating diet without issue. No fever, chills, lightheadedness, headache, chest pain, palpitation, shortness of breath, dysuria, diarrhea constipation. PCP is Dr. Al. Allergies Allergy/AdvReac Type Severity Reaction Status Date / Time No Known Allergies Allergy Verified 08/11/20 10:21 Home Medications Home Medications Medication Instructions Recorded Confirmed Type aspirin [Aspir-81] 81 mg PO QAM 07/13/20 08/11/20 History meloxicam 15 mg PO QAM 07/13/20 08/11/20 History metformin 500 mg PO BID 07/13/20 08/11/20 History lisinopril-hydrochlorothiazide 1 tab PO QAM 07/15/20 08/11/20 History multivitamin with minerals [Men's 1 tab PO QAM 07/15/20 08/11/20 History One Daily] pravastatin 40 mg PO QAM 07/15/20 08/11/20 History Patient History Medical History (Updated 08/11/20 @ 18:33 by Loree Harrington PA-C) Cervical stenosis of spine Diabetes mellitus, type 2 on metformin daily Hyperlipidemia Hypertension Osteoarthritis Tinnitus of both ears Transient ischemic attack (TIA) roughly 2009 ? now on ASA 81mg. Surgical History (Updated 08/11/20 @ 18:33 by Loree Harrington PA-C) History of anesthesia reaction per 2013 records, (see Dr. Vic Joshua's progress note), pt had an episode of hypotension (82/43) in PACU after lumbar spinal fusion @ [facility] on 07/2013, normalized/corrected with IV fluids and ephedrine, no further issues noted Pt stated that is the only time he has ever had an issue with anesthesia. History of arthroscopy of left knee History of arthroscopy of right knee History of carpal tunnel release of both wrists History of colonoscopy with polypectomy History of lumbar spinal fusion History of tooth extraction Family History Father Family history of diabetes mellitus Mother Family history of diabetes mellitus Family history of reaction to anesthesia difficulty waking Grandmother (Maternal) Family history of diabetes mellitus Uncle Family history of diabetes mellitus Aunt Family history of diabetes mellitus Social History (Updated 08/11/20 @ 18:40 by Loree Harrington PA-C) Smoking Status: Never smoker Second Hand Exposure: No; Do You Dip or Chew Tobacco: Yes (1 can every 3-4 days, advised none AM DOS); Tobacco Cessation Education Requested by Patient: No Hx Alcohol Use: Yes Alcohol type: beer Alcohol Intake Frequency: Monthly or Less Hx Substance Use: No Preferred Language: Romansh Communication Ability: Effective Security Orderly Required: No Beliefs That Will Affect Care: None Current Living Situation: Spouse and Family Current Living Situation Comment: Lives with and son and his Other Information That Helps Us Care for You: No Feels Safe at Home: Yes Safety Concerns: Feels Safe At This Time Assistive Devices: Glasses Assistive Devices Comment: reading glasses Review of Systems Review of Systems: At least ten systems reviewed and negative except as noted in the HPI. Physical Exam Physical Exam: General Appearance: WD/WN, vitals as above, NAD, sitting up in bed, pleasant, conversing easily Head: normocephalic, atraumatic Eyes: normal inspection, PERRL, conjunctivae normal, anicteric sclerae ENT: external ear and nose normal, oropharynx normal Neck: normal visual inspection, trachea midline, no thyromegaly Respiratory: normal respiratory effort, lungs clear to auscultation, no wheeze, rales, rhonchi Cardiovascular: regular rate, rhythm, no murmur, normal peripheral pulses, no BLE edema Abdomen/GI: normal bowel sounds, soft, nontender, no hepatosplenomegaly Extremities/Musculoskeletal: + L knee with surgical dressing c/d/i and distally NVI. No cyanosis or clubbing, extremities motor strength 5/5 Neurologic: PERRL, CN's II-XI intact bilaterally and moves all extremities Psychiatric: A+Ox3, euthymic affect Skin: no rashes, normal color, warm/dry Results & Data Results & Data ([facility]) Vital Signs (Past 12 Hours) Vital Signs Temp Pulse Pulse Resp BP BP Pulse Ox 08/11/20 18:02 36.5 C 71 18 136/90 99 08/11/20 16:57 36.5 C 65 16 122/75 99 08/11/20 16:31 36.5 C 68 18 119/76 98 08/11/20 16:01 36.5 C 64 16 124/73 96 08/11/20 15:45 36.4 C L 70 17 106/67 98 08/11/20 15:30 70 12 114/71 98 08/11/20 15:20 74 17 102/62 94 08/11/20 15:10 72 16 111/68 95 08/11/20 15:03 36.9 C 78 13 106/51 L 98 08/11/20 12:40 68 16 122/61 99 08/11/20 12:30 70 16 117/71 100 08/11/20 11:23 37 C 68 18 137/78 96 08/11/20 10:55 37.2 C 86 18 142/96 H 97
[2020-08-11] MEDS ORDERED: SENNA 8.6 MG TAB PO SCH (21:00)
[2020-08-11] MEDS: DOCUSATE SODIUM 100 MG CAP PO SCH (21:19)
[2020-08-11] MEDS: INSULIN ASPART 100 UNITS/ML 3 ML PEN SC SCH ×2 (21:19→23:34)
[2020-08-11] MEDS: CEFAZOLIN 2000MG 2,000 MG/15 ML SYR IV SCH (21:19)
[2020-08-11] MEDS: ACETAMINOPHEN 500 MG TAB PO SCH (21:20)
[2020-08-11] MEDS: OXYCODONE HCL IR 5 MG TAB (IMMEDIATE RELEASE) PO PRN (23:35)
[2020-08-12] MEDS: INSULIN ASPART 100 UNITS/ML 3 ML PEN SC SCH ×3 (04:17→12:57)
[2020-08-12] MEDS: KETOROLAC TROMETHAMINE 15 MG/ML VIAL IV SCH ×2 (04:17→09:34)
[2020-08-12] MEDS: CEFAZOLIN 2000MG 2,000 MG/15 ML SYR IV SCH (04:18)
[2020-08-12] MEDS: ACETAMINOPHEN 500 MG TAB PO SCH ×2 (04:18→12:57)
[2020-08-12 06:37] LABS: Hematocrit (blood only) 40.1 % (42-52); Hemoglobin 13.9 g/dL (14.0-18.0); Mean Corpuscular Hemoglobin 30.6 pg (25-34); Mean Corpuscular Hgb Conc 34.7 g/dL (32-36); Mean Corpuscular Volume 88.3 fL (80-100); Mean Platelet Volume 9.2 fL (7.4-10.4); Platelet Count 289 K/uL (130-400); RDW Coefficient of Variation 12.5 % (11.5-14.5); RDW Standard Deviation 40.1 fL (36.4-46.3); Red Blood Count 4.54 M/uL (4.7-6.1); White Blood Count 14.88 K/uL (4.8-10.8)
[2020-08-12 06:54] LABS: BUN Creatinine Ratio 17.9 (10-20); Calcium 8.6 mg/dl (8.5-10.1); Creatinine Clr Calc Pharmacy 101.1 ml/min; Est GFR (Non-African American) 93.2; Potassium 3.7 mmol/L (3.5-5.1)
[2020-08-12] MEDS ORDERED: METFORMIN HCL 500 MG TAB PO SCH (08:00)
[2020-08-12] MEDS: DOCUSATE SODIUM 100 MG CAP PO SCH (08:10)
[2020-08-12] MEDS ORDERED: LISINOPRIL/HCTZ 20/12.5MG 1 TAB TAB PO SCH (09:00)
[2020-08-12] MEDS ORDERED: MULTIVITAMIN TAB PO SCH (09:00)
[2020-08-12] MEDS ORDERED: ASPIRIN 325 MG ECTAB PO SCH (09:00)
[2020-08-12] MEDS ORDERED: PRAVASTATIN SOD 40 MG TAB PO SCH (09:00)
[2020-08-12] MEDS: OXYCODONE HCL IR 5 MG TAB (IMMEDIATE RELEASE) PO PRN (09:51)
--- NOTE | 2020-08-12 10:02 | Orthopedic Progress Note ---
Date of Service August 12, 2020 Assessment & Plan (1) Degenerative joint disease of left knee: Status post left total knee arthroplasty POD#1 -Ancef x24 -DVT prophylaxis: SCDs, teds, ASA twice daily -Weight-bear as tolerates left lower extremity -PT/OT -Postoperative x-ray demonstrates a well aligned well fixed prosthesis without fracture or dislocation. -A.m. labs - as above, hgb 13.9 -DC planning - home with HH Admission and Anticipated Discharge Date Admission Date: August 11, 2020 Subjective Post Operative Progress Note Patient seen sitting up in bed, comfortable, denies complaints, pain well controlled, no acute issues. Review of Systems Review of Systems: All systems reviewed & are unremarkable except as noted in HPI & below Constitutional: as per Subjective / HPI Physical Exam Physical Exam: LLE NVSI +EHL/FHL/TA/GS SILT grossly, +2 DP pulse, compartments soft NT, dressing cdi. Constitutional: WD/WN, vitals as above Results & Data ([facility]) Vital Signs (Past 12 Hours) Vital Signs Temp Pulse Resp BP Pulse Ox 08/12/20 08:00 36.2 C L 74 16 142/79 H 100 08/12/20 03:49 36.8 C 88 16 131/74 97 08/11/20 23:00 36.7 C 83 16 136/80 96 Laboratory Results 08/12/20 08/12/20 08/12/20 Range/Units 08:23 06:23 06:23 WBC 14.88 H (4.8-10.8) K/uL RBC 4.54 L (4.7-6.1) M/uL Hgb 13.9 L (14.0-18.0) g/dL Hct 40.1 L (42-52) % MCV 88.3 (80-100) fL MCH 30.6 (25-34) pg MCHC 34.7 (32-36) g/dL RDW Std Deviation 40.1 (36.4-46.3) fL RDW Coeff of Aguilar 12.5 (11.5-14.5) % Plt Count 289 (130-400) K/uL MPV 9.2 (7.4-10.4) fL Sodium 139 (136-145) mmol/L Potassium 3.7 (3.5-5.1) mmol/L Chloride 105 (98-107) mmol/L Carbon Dioxide 28 (21-32) mmol/L Anion Gap 6.0 (3-11) BUN 16 (7-18) mg/dl Creatinine 0.87 (0.6-1.4) mg/dl Est Cr Clr Drug Dosing 101.1 ml/min Est GFR ( Amer) 108.0 Est GFR (Non-Af Amer) 93.2 BUN/Creatinine Ratio 17.9 (10-20) Glucose 104 H (70-99) mg/dl POC Glucose 102 H (70-99) mg/dl Calcium 8.6 (8.5-10.1) mg/dl Hepatitis C Ab Screen (Neg) 08/12/20 08/11/20 08/11/20 Range/Units 03:51 23:30 20:32 WBC (4.8-10.8) K/uL RBC (4.7-6.1) M/uL Hgb (14.0-18.0) g/dL Hct (42-52) % MCV (80-100) fL MCH (25-34) pg MCHC (32-36) g/dL RDW Std Deviation (36.4-46.3) fL RDW Coeff of Aguilar (11.5-14.5) % Plt Count (130-400) K/uL MPV (7.4-10.4) fL Sodium (136-145) mmol/L Potassium (3.5-5.1) mmol/L Chloride (98-107) mmol/L Carbon Dioxide (21-32) mmol/L Anion Gap (3-11) BUN (7-18) mg/dl Creatinine (0.6-1.4) mg/dl Est Cr Clr Drug Dosing ml/min Est GFR ( Amer) Est GFR (Non-Af Amer) BUN/Creatinine Ratio (10-20) Glucose (70-99) mg/dl POC Glucose 175 H 96 178 H (70-99) mg/dl Calcium (8.5-10.1) mg/dl Hepatitis C Ab Screen (Neg) 08/11/20 08/11/20 08/11/20 Range/Units 17:22 15:23 10:13 WBC (4.8-10.8) K/uL RBC (4.7-6.1) M/uL Hgb (14.0-18.0) g/dL Hct (42-52) % MCV (80-100) fL MCH (25-34) pg MCHC (32-36) g/dL RDW Std Deviation (36.4-46.3) fL RDW Coeff of Aguilar (11.5-14.5) % Plt Count (130-400) K/uL MPV (7.4-10.4) fL Sodium (136-145) mmol/L Potassium (3.5-5.1) mmol/L Chloride (98-107) mmol/L Carbon Dioxide (21-32) mmol/L Anion Gap (3-11) BUN (7-18) mg/dl Creatinine (0.6-1.4) mg/dl Est Cr Clr Drug Dosing ml/min Est GFR ( Amer) Est GFR (Non-Af Amer) BUN/Creatinine Ratio (10-20) Glucose (70-99) mg/dl POC Glucose 134 H 154 H 104 H (70-99) mg/dl Calcium (8.5-10.1) mg/dl Hepatitis C Ab Screen (Neg) 08/11/20 Range/Units 10:10 WBC (4.8-10.8) K/uL RBC (4.7-6.1) M/uL Hgb (14.0-18.0) g/dL Hct (42-52) % MCV (80-100) fL MCH (25-34) pg MCHC (32-36) g/dL RDW Std Deviation (36.4-46.3) fL RDW Coeff of Agiular (11.5-14.5) % Plt Count (130-400) K/uL MPV (7.4-10.4) fL Sodium (136-145) mmol/L Potassium (3.5-5.1) mmol/L Chloride (98-107) mmol/L Carbon Dioxide (21-32) mmol/L Anion Gap (3-11) BUN (7-18) mg/dl Creatinine (0.6-1.4) mg/dl Est Cr Clr Drug Dosing ml/min Est GFR ( Amer) Est GFR (Non-Af Amer) BUN/Creatinine Ratio (10-20) Glucose (70-99) mg/dl POC Glucose (70-99) mg/dl Calcium (8.5-10.1) mg/dl Hepatitis C Ab Screen Neg (Neg)
--- NOTE | 2020-08-12 14:44 | Hospitalist Progress Note ---
Date of Service August 12, 2020 Assessment & Plan (1) Status post left knee replacement: Patient is a 60 yr male with H/O HTN, DM II, HLD and other medical problems listed below who is POD#0 s/p L TKA by Dr. Acuña. S/P Left Total Knee Arthroplasty POD #1 Leukocytosis noted--likely reactive secondary to surgery Wound care, activity, DVT prophylaxis as per primary team Continue bowel regimen to prevent constipation Pain is controlled Continue PT OT, incentive spirometer Monitor CBC (2) Diabetes mellitus, type 2: A1c of 6.4 in June 2020 Hold PO medications Continue insulin therapy while hospitalized Monitor BSGs (3) Hypertension: BP mildly elevated likely secondary to pain Continue lisinopril, HCTZ Monitor (4) Transient ischemic attack (TIA): Continue aspirin, pravastatin Monitor (5) Hyperlipidemia: Continue statin DVT Px: As per primary team CODE STATUS Full code Admission and Anticipated Discharge Date Admission Date: August 11, 2020 Subjective Patient is seen and examined at bedside Left knee pain at surgical site is controlled Reports left lower extremity pretibial numbness Denies chest pain, shortness of breath, dizziness, nausea, abdominal pain Offers no other complaints Review of Systems Review of Systems: All systems reviewed & are unremarkable except as noted in HPI & below Physical Exam Physical Exam: Physical Exam: Vitals signs as noted above General Appearance:Moderately built and nourished, no apparent distress Head: normocephalic, Atraumatic Eyes: normal inspection, EOMI Neck: supple, Trachea midline Respiratory/Chest: Normal breath sounds, CTA Cardiovascular: S1, S2, No murmur Abdomen/GI:Soft, Non tender, Bowel sounds present Extremities/Musculoskelatal:normal inspection, no edema, Left Knee:Surgical site Neurologic/Psych:AAOX3, grossly no focal neurological deficits Skin: normal color, warm Results & Data Results & Data ([facility]) Vital Signs (Past 12 Hours) Vital Signs Temp Pulse Pulse Resp BP BP Pulse Ox 08/12/20 10:04 36.2 C L 70 74 16 142/79 H 124/78 100 08/12/20 08:00 36.2 C L 74 16 142/79 H 100 08/12/20 03:49 36.8 C 88 16 131/74 97 Laboratory Results Short CBC 08/12/20 Range/Units 06:23 WBC 14.88 H (4.8-10.8) K/uL Hgb 13.9 L (14.0-18.0) g/dL Hct 40.1 L (42-52) % Plt Count 289 (130-400) K/uL [facility] 08/12/20 06:23 Sodium 139 Potassium 3.7 Chloride 105 Carbon Dioxide 28 BUN 16 Creatinine 0.87 Glucose 104 H Calcium 8.6
--- NOTE | 2020-08-12 20:05 | Discharge Summary ---
Date of Service August 12, 2020 Principal Diagnosis Left total knee replacement -Left knee DJD Discharge Exam LLE NVSI +EHL/FHL/TA/GS SILT grossly, +2 DP pulse, compartments soft NT, dressing cdi. Constitutional WD/WN, vitals as above Discharge Data Allergies Allergy/AdvReac Type Severity Reaction Status Date / Time No Known Allergies Allergy Verified 08/11/20 10:21 Consultations 08/11/20 16:01 Consult Case Management - Discharge Planning Routine 08/11/20 17:20 Consult Hospitalist Routine Procedures Performed Operation Date: 08/11/20 12:05 Actual Procedures p Left Total Knee Arthroplasty(Left) - Hermes Acuña DO Ordered Studies 08/11/20 05:00 US - OR guided needle placemen Routine Hospital Course (1) Degenerative joint disease of left knee: The patient is a 60 -year-old male who presents with long standing history of severe left knee DJD and failed outpatient conservative treatments. The patient's symptoms have progressed to the point where it has been difficult to perform even normal activities of daily living. I indicated the patient for a left total knee arthroplasty, the risks, benefits and complications of the procedure include but not limited to infection, bleeding, damage to bone, nerves, vessels, surrounding soft tissue, may develop blood clots, loss of function, leg length discrepancy, dislocation, failure of the components, loosening of the components, the need for additional surgery and . The patient wished to proceed with surgery at this time and informed consent was obtained. Hospital Course: On 08/11/20 the patient was taken to the operating room, adequate anesthesia administered and underwent a left total knee arthroplasty. The patient tolerated the procedure well and was taken to the PACU in stable condition. Post-operatively the patient was started on a DVT ppx medication and given appropriate IV antibiotics. Consults were placed to physical therapy, occupational therapy and case management. On POD#1, the patient did well overnight and their pain was well controlled. Labs were drawn and the Hgb was 13.9. The patient progressed well with PT. Dressings were changed at this time and the incision was clean, dry and intact. On POD#2, The patients hospital stay was relatively uneventful and they were deemed stable by the orthopedic team and consultants to be discharged home with on 08/12/20. Discharge Instructions: Upon discharge the patient may weight bear as tolerates through their operative extremity. They were instructed to keep the incision clean and dry at all times. The patient may shower but should not submerge the incision, avoid bathing, pools and hot tubes. The patient was given a script for pain medication and should take as instructed. The patient was given a script for DVT ppx 325mg ASA BID and should take as directed. The patient was instructed to not drive or travel for long distances until cleared to do so. If the patient develops any symptoms of fevers, chills, nausea, vomiting, increased redness, swelling, pain or drainage from the surgical site, they should notify the office and/or proceed to the nearest emergency room. The patient should follow up in 10-14 days after surgery for their routine post-operative follow-up appointment and should call the office to confirm the date and time. Status post left total knee arthroplasty POD#1 -Ancef x24 -DVT prophylaxis: SCDs, teds, ASA twice daily -Weight-bear as tolerates left lower extremity -PT/OT -Postoperative x-ray demonstrates a well aligned well fixed prosthesis without fracture or dislocation. -A.m. labs - as above, hgb 13.9 -DC planning - home with Total Time Total Time Spent Total Time Spent (In Minutes): 30 Discharge Plan Discharge Items Patient Disposition: Home - Home Health Services Reason For Visit: Left Knee Degenerative Joint Disease Discharge Diagnosis: Left total knee replacement -Left knee DJD Condition on Discharge: Good Activity: Per Instructions section Lifting: Wait until after follow-up appointment Bathing: Keep incision dry Sexual Activity: Wait until after follow-up appointment Exercise/Sports: Wait until after follow-up appointment Driving/Machine Use: No driving Weightbearing: Full weightbearing Non-emergency contact: Primary Care Provider and Surgeon Call non-emergency contact if: you have any medication questions, your symptoms worsen, your pain is not controlled, your pain is worsening, your pain is unusual for you, your pain is concerning for you, you have a fever, your temperature is above 101, your wound has increased redness, your wound has increased drainage and your wound pain has increased Follow-up/Referrals: Ck Al DO [Primary Care Provider] - Diet: Regular Addtl Attending Provider Instructions: ACTIVITY RECOMMENDATIONS: SELF CARE INSTRUCTIONS AFTER TOTAL KNEE REPLACEMENT A. You may need to continue a physical therapy program after discharge from the hospital. There are several options available to you. Your doctor will assist you in selecting the best one for you. 1. An out-patient facility 2 to 3 times a week for therapy or home therapy. 2. Continue working on all exercises taught to you in the hospital. Your goals should be to increase bending of your knee to 90 degrees and beyond and to fully straighten your knee. B. You may progress at your own pace from walking with a walker or crutches to a cane; then to no assistive devices. C. Make walking a part of your daily routine. Be up as much as comfortable with rest periods throughout the day. Rest with leg elevation is very important. Use the ice wrap frequently for the first 3-4 weeks. D. There are no restrictions on activities. You may ride in a car, shop, parti cipate in practicing md anesthesiologist and all social activities. E. Wear the long elastic stockings (MEAGAN hose) 20 hours a day for 2 weeks after surgery. They can be removed several times a day for laundering and for a bath. F. You may shower, no tub baths until cleared by your doctor. SPECIAL CARE INSTRUCTIONS: VERY IMPORTANT TO READ AND REVIEW A. There are a few signs you need to watch for after you are home. Call [facility] if you notice any of the followin. Increased severe knee pain. Some pain is expected especially when you exercise. 2. Increased swelling in your leg or knee; pain or swelling of the calf muscle in either lower leg. 3. Any fluid drainage from the incision. 4. Shortness of breath or chest pain. B. Please call [facility] at if you have any concerns or questions about your operation or recovery. The doctor or his nurse will return your call promptly. C. You must take antibiotics before dental work, bladder, bowel or other surgery. Your doctor will provide you with a permanent care to carry describing th is precaution. IMPORTANT: * REMEMBER TO TAKE ASPIRIN, 325 MG, TWICE DAILY FOR 4 WEEKS UNLESS OTHERWISE DIRECTED. THIS IS YOUR BLOOD THINNER. * HIGH RISK PATIENTS MAY BE PRESCRIBED A STRONGER BLOOD THINNER. THIS WILL BE PROVIDED AT DISCHARGE. * CALL IF INCREASED PAIN, REDNESS, DRAINAGE OR FEVER GREATER THAT 101. * WEAR MEAGAN HOSE 20 HOURS PER DAY FOR 2 WEEKS. *DERMABOND Prineo- This is a mesh tape dressing that is covered with glue. It should remain in place until the incision is properly healed, usually 10-14 d ays. This dressing is designed to naturally slough off. You may trim the excess mesh tape as it peels off. Incision may be briefly wet in a shower. Dry immediately by blotting with a clean, dry towel. Do not bath or swim until instructed by your doctor. Do not scratch, rub, or pick at the dressing. Do not apply any topical ointments or lotions until dressing is completely removed and/or instructed by your doctor. There may be a small piece of suture material at one end of your incision. Do not pull or trim this. If it is bothersome or catching on clothing, you may cover it with a band-aid. FOLLOW UP VISIT: If appointment is not already scheduled: Please call [facility] to make a follow-up appointment for 2 weeks after your surgery at . Pending Studies at Discharge: No Stand-Alone Forms: My [facility] Chinese Whispers Music, Smoking Cessation Medications and DC Order Prescriptions: New celecoxib [Celebrex] 200 mg Capsule 200 mg PO BID PRN (Reason: pain/inflammation) Qty: 28 RF: 0 acetaminophen 500 mg Tablet 1,000 mg PO Q8 PRN (Reason: pain/fevers) Qty: 90 RF: 0 aspirin [Ecotrin] 325 mg Tablet,Delayed Release (Dr/Ec) 325 mg PO BID Qty: 56 RF: 0 oxycodone 5 mg Tablet 5 mg PO Q6H MDD 4 PRN (Reason: pain) Qty: 30 RF: 0 sennosides [Senokot] 8.6 mg Tablet 17.2 mg PO HS PRN (Reason: constipation) Qty: 28 RF: 0 Continued metformin 500 mg Tablet Extended Release 24 Hr 500 mg PO BID RF: 0 lisinopril-hydrochlorothiazide 20-12.5 mg Tablet 1 tab PO QAM RF: 0 pravastatin 40 mg Tablet 40 mg PO QAM RF: 0 multivitamin with minerals [Men's One Daily] Tablet 1 tab PO QAM RF: 0 Discontinued aspirin [Aspir-81] 81 mg Tablet,Delayed Release (Dr/Ec) 81 mg PO QAM RF: 0 meloxicam 7.5 mg Tablet 15 mg PO QAM RF: 0 Discharge Orders: Discharge Order (Routine); Ordered 08/12/20 Ordered By: Hermes Acuña Admission Data Admit Date/Time: 08/11/20 15:07 Attending Provider: Hermes Acuña Admit Provider: Hermes Acuña Primary Care Provider: Ck Al V. Other Providers: Nader Pedraza ; Siddharth Rueda ; Isabel Gilman ; Anna Salas ; Shauna Bosch ; Zandra Muniz ; Loree Harrington ; You Bernal ; Moisés Soria ; Sudhir Ignacio ; Virginie Cheung ; Brandi Plasencia ; Stephanie Christensen ; Juancho Gamble ; Greg Batres ; Carley Aparicio ; Sagar Chilel ; Amelia Gaming ; Greg Bae ; Linnette Palomo ; Lyndsay Kline ; Reese Peña ; Jessica Decker I. ; Irineo Mays ; [facility] Other Interventions: Discharge Summary Assessment (RN) Last Done: 08/12/20 10:04
[2020-08-12] MEDS ORDERED: CeleBREX 200 MG CAP PO SCH (21:00)
== END 2020-08-12 16:02 | disposition home health service (06) | DRG 470 ==
LOC: 3E 09:52 → ASU 09:52 → OBSVTOIN 15:07

== ENCOUNTER 2021-02-15 06:37 | Inpatient (IN) ==
--- NOTE | 2021-01-19 09:52 | PAT Medication Instructions ---
Medication Instructions Date of Service January 19, 2021 Home Medications Medication Instructions Recorded acetaminophen 1,000 mg PO Q8 PRN #90 tab 08/11/20 metformin 500 mg PO BID lisinopril-hydrochlorothiazide 1 tab PO QAM Men's One Daily 1 tab PO QAM pravastatin 40 mg PO QAM acetaminophen 1,000 mg PO Q8 PRN aspirin 81 mg PO QAM meloxicam 15 mg PO QAM ASK your surgeon for instructions meloxicam 15 mg PO QAM DO NOT take the morning of surgery metformin 500 mg PO BID lisinopril-hydrochlorothiazide 1 tab PO QAM Men's One Daily 1 tab PO QAM Take morning of surgery With a small sip of water, OTHERWISE NOTHING TO EAT OR DRINK AFTER MIDNIGHT: pravastatin 40 mg PO QAM acetaminophen 1,000 mg PO Q8 PRN (okay to take up to 4 hours prior to surgery if needed) aspirin 81 mg PO QAM Take evening before surgery metformin 500 mg PO BID acetaminophen 1,000 mg PO Q8 PRN (if needed) Other Notes If you have any questions please call us at [phone] or [phone] or [phone] or [phone]
--- NOTE | 2021-01-20 12:41 | Anesthesiology Consultation ---
Date of Service January 20, 2021 Assessment & Plan (1) Encounter for pre-operative examination: - Per assessment on 01/20: Travel screen negative. No known COVID-19 positive contacts or current COVID-19 related symptoms. Surgeon arranging preop COVID testing. Awaiting results. - Check BSG AM DOS - S/P Left TKA: 08/11/20: SAB x1 attempt at L3-L4 + PNB at [facility] Chart Review Chart Review: Acceptable Risk for Surgery and Patient seen in Pre Admission Testing Teaching & Discussion Pre-Anesthesia Teaching/Discussion Notes: Instructed NPO after midnight before surgery,except medications with 15 cc of water. Medication instructions provided according to the PAT guidelines. History Surgery Operation Date: 02/15/21 08:50 Proposed Procedures p Right Total Knee Arthroplasty - Hermes Acuña DO Height/Weight Height: 5 ft 10 in Weight: 96.2 kg Allergies Allergy/AdvReac Type Severity Reaction Status Date / Time No Known Allergies Allergy Verified 01/01/21 11:38 Medications Home Medications Medication Instructions Recorded Confirmed Last Taken metformin 500 mg PO BID 07/13/20 01/01/21 08/10/20 18:10 lisinopril-hydrochlorothiazide 1 tab PO QAM 07/15/20 01/01/21 08/10/20 07:10 multivitamin with minerals [Men's 1 tab PO QAM 07/15/20 01/01/21 08/10/20 07:10 One Daily] pravastatin 40 mg PO QAM 07/15/20 01/01/21 08/11/20 07:10 acetaminophen 1,000 mg PO Q8 PRN #90 tab 08/11/20 01/01/21 Unknown aspirin 81 mg PO QAM 01/01/21 01/01/21 Unknown meloxicam 15 mg PO QAM 01/01/21 01/01/21 Unknown Past Medical History Medical History Cervical stenosis of spine Diabetes mellitus, type 2 NIDDM Hyperlipidemia Hypertension Osteoarthritis Tinnitus of both ears Exercise / Class Metabolic Activity II 4-5 Yardwork/Stairs/Walk up hill Past Family History Family History Father Family history of diabetes mellitus Mother Family history of diabetes mellitus Family history of reaction to anesthesia difficulty waking Grandmother (Maternal) Family history of diabetes mellitus Uncle Family history of diabetes mellitus Aunt Family history of diabetes mellitus Past Surgical History Surgical History History of arthroscopy of left knee History of arthroscopy of right knee History of carpal tunnel release of both wrists History of colonoscopy with polypectomy History of lumbar spinal fusion History of tooth extraction History of total left knee replacement Left TKA: 08/11/20: SAB x1 attempt at L3-L4 + PNB at [facility] Past Anesthesia History No Family Hx of Anesthesia Complications and Other Per 2013 records, (see Dr. Vic Joshua's progress note), pt had an episode of hypotension (82/43) in PACU after lumbar spinal fusion @ [facility] on 07/2013, normalized/corrected with IV fluids and ephedrine, no further issues noted. Pt states no other issues with previous or subsequent surgery/anesthesia. No complications noted per 08/11/20 anesthesia progress note after patient's recent left TKA at [facility]. History of PONV No Hx of PONV and Hx of Motion Sickness (*hx of severe headaches with previous scopolamine patch use*) Social History Smoking Status: Never smoker tobacco type: smokeless tobacco Do You Dip or Chew Tobacco: Yes (1 can every few days- advised none AM DOS) Hx Alcohol Use: Yes Alcohol type: beer alcohol intake frequency: holidays/special occasions only Hx Substance Use: No substance use type: does not use Review of Systems Patient denies chest pain, shortness of breath, dyspnea on exertion, joint pain, reflux, cough, wheezing, palpitations. Physical Exam Vital Signs VITALS BP 146/82 P 99 TEMP 98.2 SP02 94%RA RESP 16 PHYSICAL Decreased cervical extension (hx chronic cervical issues) Full TMJ range of motion. TMD 3 finger breaths Mallampati Score 3 Dentition: + dental restorations (many crowns) and + small oral opening; no chipped teeth and no loose teeth, missing molars Lungs: clear throughout to auscultation Cardiac: regular rate and rhythm, no murmurs noted Spine: normal Carotid arteries: negative bruit Extremities: no edema Trimmed [place] Testing Laboratory Results 01/20/21 13:18 01/20/21 13:18 PT 10.2 Seconds (9.0-12.0) 01/20/21 13:18 INR 1.0 (0.9-1.1) 01/20/21 13:18 APTT 25.7 Seconds (21.0-31.0) 01/20/21 13:18 Urine Color Yellow 01/20/21 13:18 Urine Appearance Clear (Clear) 01/20/21 13:18 Urine pH 5.5 (4.5-7.5) 01/20/21 13:18 Ur Specific [place] 1.021 (1.000-1.030) 01/20/21 13:18 Urine Protein Negative (Negative) 01/20/21 13:18 Urine Glucose (UA) Negative (Negative) 01/20/21 13:18 Urine Ketones Negative (Negative) 01/20/21 13:18 Urine Nitrite Negative (Negative) 01/20/21 13:18 Ur Leukocyte Esterase Negative (Negative) 01/20/21 13:18 Blood Type A Positive 01/20/21 13:18 Antibody Screen NEGATIVE 01/20/21 13:18 Preop testing to be forwarded to PCP for continuity of care. Electrocardiogram Date: 07/15/20 Findings: + NSR @ (88) Chest X-Ray Date: 07/15/20 Findings: + NAD
[2021-01-20 14:28] LABS: Basophils # (auto) 0.03 K/uL (0-0.2); Basophils % (auto) 0.6 %; Eosinophils # (auto) 0.03 K/uL (0-0.5); Eosinophils % (auto) 0.6 %; Hematocrit (blood only) 42.7 % (42-52); Immature Granulocytes # (auto) 0.01 K/uL (0.00-0.02); Immature Granulocytes % (auto) 0.2 %; Lymphocytes # (auto) 1.57 K/uL (1.2-3.4); Lymphocytes % (auto) 29.8 %; Mean Corpuscular Hemoglobin 30.5 pg (25-34); Mean Corpuscular Hgb Conc 35.1 g/dL (32-36); Mean Corpuscular Volume 86.8 fL (80-100); Mean Platelet Volume 9.8 fL (7.4-10.4); Monocytes # (auto) 0.63 K/uL (0.11-0.59); Neutrophils % (auto) 56.8 %; Platelet Count 301 K/uL (130-400); RDW Coefficient of Variation 12.4 % (11.5-14.5); RDW Standard Deviation 39.3 fL (36.4-46.3); Red Blood Count 4.92 M/uL (4.7-6.1); White Blood Count 5.27 K/uL (4.8-10.8)
[2021-01-20 14:54] LABS: Partial Thromboplastin Time 25.7 Seconds (21.0-31.0); Prothrombin Time 10.2 Seconds (9.0-12.0)
[2021-01-20 15:23] LABS: Appearance Urine Clear (Clear); Bilirubin Urine Negative (Negative); Blood Urine Negative (Negative); Color Urine Yellow; Glucose Urine UA Negative (Negative); Ketones Urine Negative (Negative); Leukocyte Esterase Urine Negative (Negative); Nitrite Urine Negative (Negative); Protein Urine Negative (Negative); Specific Gravity Urine 1.021 (1.000-1.030); Urobilinogen Urine Negative (Negative); pH Urine 5.5 (4.5-7.5)
[2021-01-20 15:38] LABS: BUN Creatinine Ratio 20.4 (10-20); Calcium 8.6 mg/dl (8.5-10.1); Creatinine Clr Calc Pharmacy 111.5 ml/min; Est GFR (African American) 111.2; Est GFR (Non-African American) 95.9; Potassium 3.8 mmol/L (3.5-5.1)
[2021-01-21 07:47] LABS: Estimated Average Glucose 148 mg/dl; Hemoglobin A1C 6.8 % (4.5-5.6)
--- NOTE | 2021-02-13 08:25 | History & Physical Report ---
Date of Service February 15, 2021 Assessment & Plan (1) Degenerative joint disease of knee, right: I have indicated the patient for right total knee replacement. The risks, benefits and complications of surgery were explained to the patient which include but not limited to infection, acute blood loss, DVT/PE, injury to nerves, vessels, bone, soft tissue, arthrofibrosis, chronic pain, failure of the prosthesis, knee dislocation, leg length discrepancy, need for additional surgery, cardiac and pulmonary events and . The patient wished to proceed with surgery and informed consent was obtained at this time. We will plan for 81mg ASA BID post-operatively for DVT prophylaxis. Upon discharge the patient will be discharged home with home health services. Appropriate clearances by KEMI P were obtained. History of Present Illness Chief Complaint: Right knee pain/DJD Primary Care Provider: Ck Al DO The patient is a 60 year old male who presents with complaints of severe right knee pain and DJD. The patient has failed outpatient conservative treatments to this point which included NSAIDS, IA corticosteroid injection, home exercise/walking program. The patient's pain and limited function have progressed to the point where they severely hinder their activities of daily living and they no longer tolerate exercise programs. They are requesting to proceed with total knee replacement surgery. Allergies Allergy/AdvReac Type Severity Reaction Status Date / Time No Known Allergies Allergy Verified 02/15/21 07:01 Home Medications Medication Instructions Recorded Confirmed Type metformin 500 mg PO BID 07/13/20 02/15/21 History lisinopril-hydrochlorothiazide 1 tab PO QAM 07/15/20 02/15/21 History multivitamin with minerals [Men's 1 tab PO QAM 07/15/20 02/15/21 History One Daily] pravastatin 40 mg PO QAM 07/15/20 02/15/21 History acetaminophen 1,000 mg PO Q8 PRN #90 tab 08/11/20 02/15/21 Rx aspirin 81 mg PO QAM 01/01/21 02/15/21 History meloxicam 15 mg PO QAM 01/01/21 02/15/21 History Past Med/Surg History Medical History Cervical stenosis of spine Diabetes mellitus, type 2 NIDDM Hyperlipidemia Hypertension Osteoarthritis Tinnitus of both ears Surgical History History of arthroscopy of left knee History of arthroscopy of right knee History of carpal tunnel release of both wrists History of colonoscopy with polypectomy History of lumbar spinal fusion History of tooth extraction History of total left knee replacement Left TKA: 08/11/20: SAB x1 attempt at L3-L4 + PNB at [facility] Family History Father Family history of diabetes mellitus Mother Family history of diabetes mellitus Family history of reaction to anesthesia difficulty waking Grandmother (Maternal) Family history of diabetes mellitus Uncle Family history of diabetes mellitus Aunt Family history of diabetes mellitus Social History Smoking Status: Never smoker Second Hand Exposure: No; Do You Dip or Chew Tobacco: Yes (1 can every few days- advised none AM DOS); Tobacco Cessation Education Requested by Patient: No Hx Alcohol Use: Yes Alcohol type: beer Alcohol Intake Frequency: Monthly or Less Hx Substance Use: No Preferred Language: Azerbaijani Communication Ability: Effective Programmer Required: No Beliefs That Will Affect Care: None marital status: Current Living Situation: Spouse Current Living Situation Comment: Lives with and son and his Other Information That Helps Us Care for You: No Feels Safe at Home: Yes Safety Concerns: Feels Safe At This Time Assistive Devices: Glasses Review of Systems Review of Systems: All systems reviewed & are unremarkable except as noted in HPI & below Constitutional: as per Subjective / HPI Physical Exam Physical Exam: RLE NVSI +EHL/FHL/TA/GS SILT grossly, +2 DP pulse, compartments soft NT, limited painful ROM, 0-120 degrees flexion, +crepitus. Constitutional: WD/WN, vitals as above Eyes: PERRL, conjunctivae normal, anicteric sclerae ENMT: external ear and nose normal, oropharynx normal Neck: trachea midline, no thyromegaly Respiratory: normal respiratory effort, lungs clear to auscultation Cardiovascular: RRR, no murmur, no edema Gastrointestinal (Abdomen): normal bowel sounds, soft, nontender, no hepatosplenomegaly Musculoskeletal: no cyanosis or clubbing, extremities motor strength 5/5 Skin: no rashes, warm and dry Neurologic: patellar DTR's 2+ bilat, sensation intact Psychiatric: A+Ox3, euthymic affect Lymphatic: no cervical or axillary lymphadenopathy Results & Data Results & Data ([facility]) Diagnostic Findings Multiple views of the knee demonstrates severe tricompartmental DJD with co mplete loss of the medial joint space. +osteophytes, +sclerosis, +subchondral cysts. Pre Admission Testing Addendum Laboratory Results 01/20/21 13:18 01/20/21 13:18 PT 10.2 Seconds (9.0-12.0) 01/20/21 13:18 INR 1.0 (0.9-1.1) 01/20/21 13:18 APTT 25.7 Seconds (21.0-31.0) 01/20/21 13:18 Hemoglobin A1c 6.8 % (4.5-5.6) H 01/20/21 13:18 Urine Color Yellow 01/20/21 13:18 Urine Appearance Clear (Clear) 01/20/21 13:18 Urine pH 5.5 (4.5-7.5) 01/20/21 13:18 Ur Specific [place] 1.021 (1.000-1.030) 01/20/21 13:18 Urine Protein Negative (Negative) 01/20/21 13:18 Urine Glucose (UA) Negative (Negative) 01/20/21 13:18 Urine Ketones Negative (Negative) 01/20/21 13:18 Urine Nitrite Negative (Negative) 01/20/21 13:18 Ur Leukocyte Esterase Negative (Negative) 01/20/21 13:18 Blood Type A Positive 01/20/21 13:18 Antibody Screen NEGATIVE 01/20/21 13:18
[~2021-02-15 06:37] MED LIST changes: -BUPIVACAINE 0.5 % 5 MG/1 ML PF 10ML VIAL ONE; -CEFAZOLIN 2000MG 2,000 MG/15 ML SYR IV SCH; -ROPIVACAINE 0.5% 5 MG/ML 30 ML VIAL ONE; -ROPIVACAINE 0.5% HCL/PF 150 MG, BUPIVACAINE 0.5% MPF 30 ML, EPINEPHrine 30MG/30ML (OR U... INSTIL SCH; +ROPIVACAINE 0.5% HCL/PF 150 MG, BUPIVACAINE 0.75% MPF 20 ML, EPINEPHrine 30MG/30ML (OR ... INFIL SCH; +ceFAZolin 2000MG 2,000 MG/15 ML SYR IV SCH
[2021-02-15] MEDS ORDERED: LIDOCAINE HCL 2% 2 ML VIAL/AMP(20MG/ML) INFIL ONE (07:06)
[2021-02-15] MEDS ORDERED: MIDAZOLAM HCL 1 MG/ML 2ML VIAL ONE (07:06)
[2021-02-15] MEDS ORDERED: PHENYLEPHRINE 100MCG/ML 5ML SYR ONE (07:06)
[2021-02-15] MEDS ORDERED: ePHEDrine sulfate 50 MG/ML SYR ONE (07:06)
[2021-02-15] MEDS ORDERED: PROPOFOL IV EMULSION 10 MG/ML 20 ML VIAL IV ONE ×2 (07:06→10:49)
[2021-02-15] MEDS ORDERED: fentaNYL citrate 100 MCG/2 ML VIAL ONE (07:06)
--- NOTE | 2021-02-15 07:08 | History & Physical Bridge Note ---
Date of Service February 15, 2021 History & Physical Bridge Note I have examined the patient, reviewed the History & Physical and in the interval since the performance of the History & Physical I have noted the following changes of clinical significance: no changes noted
[2021-02-15] MEDS ORDERED: ROPIVACAINE 0.5% 5 MG/ML 30 ML VIAL ONE (07:36)
[2021-02-15] MEDS ORDERED: BUPIVACAINE 0.5 % 5 MG/1 ML PF 10ML VIAL ONE (07:36)
[2021-02-15] MEDS ORDERED: HYDROmorphone INJ 2 MG/ML SYR/VIAL IV PRN (08:14)
[2021-02-15] MEDS ORDERED: ePHEDrine sulfate 50 MG/ML AMP IV PRN (08:14)
[2021-02-15] MEDS ORDERED: ATROPINE SULFATE 0.1 MG/ML 10ML SYR IV PRN (08:14)
[2021-02-15] MEDS ORDERED: ONDANSETRON INJ 2 MG/ML 2 ML VIAL IV PRN ×2 (08:14→12:27)
[2021-02-15] MEDS ORDERED: fentaNYL citrate 100 MCG/2 ML VIAL IV PRN (08:14)
[2021-02-15] MEDS ORDERED: ORTHO JOINT ANESTHETIC ONE (08:57)
[2021-02-15] MEDS ORDERED: BACITRACIN INJ 50,000 UNIT VIAL ONE (08:57)
--- NOTE | 2021-02-15 10:46 | Post Operative Brief Note ---
Immediate Post Op Note v1 Date of Surgery February 15, 2021 Pre & Post Diagnosis Operation Date: 02/15/21 09:00 Pre-Op Diagnosis: Right Knee Degenerative Joint Disease Post-Op Diagnosis: Right Knee Degenerative Joint Disease I identified the patient and participated in the time-out.: Yes Procedure Operation Date: 02/15/21 09:00 Actual Procedures p Right Total Knee Arthroplasty(Right) - Hermes Acuña DO Surgeon Hermes Acuña DO Circuit Breaker Supervisor Juan Powell Estimated Blood Loss 75 Findings Consistent with Post-Op Diagnosis Fluids See anesthesia report Specimens Proximal tibia and distal femur bone fragments Anesthesia Type Spinal MAC Complications none Disposition Disposition: Recovery Room Overlapping Procedure I was present for: the critical portions of procedure. I was immediately available: during the entire case. Back up surgeon: was not required during procedure.
--- NOTE | 2021-02-15 10:48 | Operative Report ---
Post Operative Report Pre & Post Diagnosis Operation Date: 02/15/21 09:00 Pre-Op Diagnosis: Right Knee Degenerative Joint Disease Post-Op Diagnosis: Right Knee Degenerative Joint Disease I identified the patient and participated in the time-out.: Yes Procedure Operation Date: 02/15/21 09:00 Actual Procedures p Right Total Knee Arthroplasty(Right) - Hermes Acuña DO Surgeon Hermes Acuña, [employer] Juan Powell Estimated Blood Loss 75 Findings Consistent with Post-Op Diagnosis Fluids See anesthesia report Specimens Proximal tibia and distal femur bone fragments Anesthesia Type Spinal MAC Complications none Disposition Disposition: Recovery Room Indications The patient is a 60-year-old male presents with long history of severe right knee tricompartmental DJD and failed outpatient conservative treatments including NSAIDs, bracing, injections and home walking/exercise program. The patient's symptoms have progressed to the point where it has been difficult to perform normal activities of daily living. I have indicated the patient for a right total knee arthroplasty, the risks and benefits and complications of the procedure include but are not limited to infection bleeding damage to bone, nerves, vessels, surrounding soft tissue, blood clots, loss of function, leg length discrepancy, dislocation, failure of the components, need for additional surgery and . The patient wished to proceed with surgery at this time and informed consent was obtained. Appropriate clearances were obtained. Description of Procedure COMPONENTS USED: Romeo [employer]omet knee system: Femur size 8 standard, Tibia size G, Tibial articulating surface 10 PS, Patella 35 mm Following induction of spinal anesthesia, a tourniquet was applied to the proximal aspect of the thigh and the patient's right leg was prepped and draped in the usual sterile manner. A timeout was performed, patient identified and site south confirmed. Appropriate pre-operative IV antibiotics were given. The limb was exsanguinated with an Esmarch bandage and tourniquet was inflated to 300 mmHg. A longitudinal midline incision was made over the anterior knee. Subcutaneous tissue was sharply dissected down to fascia. Electrocautery was used for hemostasis. Next a parapatellar arthrotomy was performed. Patella was everted and the knee was flexed. A Guevara retractor was used to expose the synovium above on the anterior aspect of the femur and removed down to bone. Next, the anterior fat pad was removed to aid in visualization. The medial face of the tibia was cleared of soft tissue first with a Bovie and a wang elevator. This tissue was retracted posteriorly using a blunt Hohmann. Next, the extra-medullary tibial cutting guide was placed to the anterior aspect of the tibia. The tibia resection level was set taking 2mm from the defective tibial condyle. Resection depth was once again confirmed with james wing. The medial and lateral collateral ligament was protected with two Hohmann retractors. The tibia guide was removed and proximal tibial bone fragment removed utilizing straight osteotome, electrocautery and Annetta. Next, the distal femur intramedullary canal was accessed utilizing the step drill. The intramedullary distal femur cutting guide was placed into the canal and pinned into place. The distal femur was cut on the 5 degree setting. Next the cutting guide was removed and the femur was sized. Care was taken to ensure appropriate sericulturist all rotation and 3 degree holes were drilled. A size 8 4-in-1 cutting block was placed on the distal end of the femur and secured into place with two short headed screws. Two bent Hohmann retractors were placed to protect the medial and lateral collateral ligaments. The oscillating saw was used to cut anterior, posterior, anterior chamfer and posterior chamfer. The four and one cutting block was removed and bone fragments excised. Laminar surveillance analyst was placed laterally and the ACL and PCL were removed followed by the medial meniscus and posterior medial osteophytes. Aquamantys was utilized for any posterior medial bleeders and Orthomix injected into the posterior medial capsule. A laminar surveillance analyst was then placed in the medial compartment and the lateral meniscus and posterior osteophytes were removed. Aquamantys was utilized for any posterior lateral bleeders and Orthomix injected into the posterior lateral capsule. Next, drop antonella and spacer block were placed with the leg in flexion and extension to assess alignment and flexion/extension gaps. Next, the proximal tibia was assessed and two bent Hohmans were placed medial and lateral to aid in visualization. The appropriate tibia size and rotation wa s selected and a size G tibial plate was pinned into place with appropriate rotation. Preparation of the tibia was completed utilizing the matching tibial drill and broach. I then turned my attention back to the distal femur in a trial femoral component was impacted into place. Appropriate femoral width was assessed and selected. Next the femur PS box cut guide was placed and cut made with the reciprocal saw and the PS box provisional placed. A trial size 10 PS tibia articular tray was placed and varus-valgus balance assessed in 0 degrees of extension and 30, 60 and 90 degrees of flexion. A final tibial articular surface size 10 PS was chosen. Assess was gained to the patella and caliper utilized to measure width. The patella reamer was utilized and remaining bone removed with oscillating saw. A size 35 mm patella button was selected and the patella pegs drilled. Trial patella button was placed and tracking was assessed. The knee was found to be well balanced, well aligned with excellent patella tracking. The trials were removed and final components were obtained and assembled. The knee was irrigated copiously with sterile saline solution mixed with bacitracin. Access to the proximal tibia was once again obtained utilizing to the Hohmans and the proximal tibia and distal femur were dried with lap sponges. The final components were cemented into place and all excess cement was removed. A trial tibial articular surface was placed while cemented hardened. Knee stability was once again assessed and the final component inserted. A Betadine soak was performed. After 3 minutes, the knee was once more irrigated with copious sterile saline solution with bacitracin. The knee was injected with the remaining Orthomix which includes a combination of Ropivicaine 0.5% 150mg, Bupivicaine 0.5%/Epinephrine 1:200,000 30ml, Toradol 30mg, Dexamethasone 4mg, Ketamine 10mg, Clonidine 100mcg and NSS 30ml solution. The capsulotomy was closed with #1 Vicryl followed by subcutaneous closure with 2-0 Vicryl suture and a 3-0 V-lock suture. Skin closure was performed using Prineo dressing followed by Telfa, 4 x 4s and jesús wrap. Tourniquet was deflated at 88 minutes. The patient tolerated the procedure well and was taken to the PACU in stable condition. Due to the complex nature of the procedure, the entire surgery was performed with the operational assistance of Juan Powell PA-C. The fire assistant, under direct supervision, was involved in the actual performance of all aspects of the surgical procedure including patient positioning, hemostasis, tissue r etraction, instrument management and wound closure. I attest to the content of the Intraoperative Record and any orders documented therein. Any exceptions are noted below.
--- NOTE | 2021-02-15 11:40 | XRay Report ---
RIGHT KNEE 2 VIEWS History: Right total knee arthroplasty. Degenerative arthritis. Postop. FINDINGS: The patient is status post a right total knee arthroplasty. The hardware is intact. No frac ture or dislocation. IMPRESSION: Right total knee arthroplasty. No evidence for hardware complication. ACT 112: Negative or not required by law. Electronically signed by: Vic Dueans M.D. 02/15/2021 11:39 AM
[2021-02-15] MEDS ORDERED: diphenhydrAMINE Capsule 25 MG CAP PO PRN (12:27)
[2021-02-15] MEDS ORDERED: bisacodyL 10 MG SUPP PR PRN (12:27)
[2021-02-15] MEDS ORDERED: HYDROmorphone INJ 0.5 MG/0.5 ML SYR IV PRN (12:27)
[2021-02-15] MEDS ORDERED: METOCLOPRAMIDE HCL INJ 5 MG/ML 2 ML VIAL IV PRN (12:27)
[2021-02-15] MEDS ORDERED: NALOXONE HCL 0.4 MG/1 ML VIAL/CARP IV PRN (12:27)
[2021-02-15] MEDS ORDERED: MAGNESIUM HYDROXIDE SUSP 30 ML UDC PO PRN (12:27)
--- NOTE | 2021-02-15 12:28 | Anesthesiology Progress Note ---
Date of Service February 15, 2021 Anesthesia Post Procedure Vital Signs Vital Signs: Temp Pulse Pulse Resp BP Pulse Ox 02/15/21 12:20 36.5 C 73 14 115/67 95 02/15/21 12:10 36.8 C 69 15 114/70 93 02/15/21 12:00 69 14 106/68 94 02/15/21 11:50 74 14 103/70 95 02/15/21 11:40 76 13 101/67 97 02/15/21 11:30 77 17 98/52 L 97 02/15/21 11:23 36.2 C L 85 16 110/62 96 02/15/21 06:54 36.8 C 78 18 162/96 H 96 Transfer of Care Handoff Completed per policy Notes Mental Status: alert / awake / arousable and participated in evaluation Patient Amnestic to Procedure: Yes Nausea / Vomiting: adequately controlled Pain: adequately controlled Airway Patency, RR, SpO2: stable & adequate BP & HR: stable & adequate Hydration State: stable & adequate Neuraxial Anesthesia: was administered and sensory block is resolving Anesthetic Complications: no major complications apparent
[2021-02-15] MEDS: SODIUM CHLORIDE 0.9% 1000ML 1,000 ML IV SCH ×2 (12:39→22:39)
[2021-02-15] MEDS ORDERED: PHARMACY GLYCEMIC MGMT CONSULT PRN (12:57)
[2021-02-15] MEDS ORDERED: GLUCAGON FOR INJ 1 MG VIAL IM PRN (13:00)
[2021-02-15] MEDS ORDERED: CARBOHYDRATES FOR HYPOGLYCEMIA PO PRN (13:00)
[2021-02-15] MEDS ORDERED: DEXTROSE 50% 50 ML SYRINGE IV PRN (13:00)
[2021-02-15] MEDS ORDERED: GLUCOSE 40% GEL 15 GM TUBE PO PRN (13:00)
[2021-02-15] MEDS ORDERED: GLUCOSE 10 TABS/TUBE PO PRN (13:00)
[2021-02-15] MEDS ORDERED: NovoLIN-N (NPH) PER UNIT CHARGE SQ ONE (13:15)
--- NOTE | 2021-02-15 13:17 | Pharmacy Report ---
Pharmacy Glycemic Short Note 2 - Date of Service February 15, 2021 - Glycemic Short BSG Results (Last 24 hours): 02/15/21 02/15/21 06:55 11:25 POC Glucose 131 H 143 H OUTPATIENT ANTIDIABETIC REGIMEN: * Metformin 500 mg PO BIDM * HbA1c: 6.8% (01/20/21) ASSESSMENT: * LS is a 60 year old male POD #0 s/p right total knee arthroplasty * Intraoperatively, patient received 8 mg PO dexamethasone and intra- articular ortho-mix containing dexamethasone * Pre-op BSG of 131 mg/dL this morning, post-op BSG of 143 mg/dL * Will order one-time NPH dose to cover steroids and fairly aggressive Novolog parameters PLAN FOR INPATIENT GLYCEMIC CONTROL: * Hold outpatient oral diabetes medications * Consider restarting metformin tomorrow * Basal insulin * NPH 15 units SC x 1 * Bolus insulin * NovoLog per scale ACHS or Q6hrs while NPO * Goal Range: Low 110 mg/dL - High 140 mg/dL * Correction Factor: 20 mg/dL/unit * Nutritional / Prandial insulin per carb ratio of 1 unit per 7 grams CHO consumed PLAN FOR DISCHARGE: * Patient's HbA1c of 6.8% is at goal * Continue metformin 500 mg PO BIDM
[2021-02-15] MEDS: KETOROLAC TROMETHAMINE 15 MG/ML VIAL IV SCH ×2 (14:22→19:54)
[2021-02-15] MEDS: ACETAMINOPHEN 500 MG TAB PO SCH ×2 (14:22→20:57)
[2021-02-15] MEDS: INSULIN ASPART 100 UNITS/ML 3 ML PEN SC SCH ×3 (14:25→20:57)
[2021-02-15] MEDS: oxyCODONE HCL IR 5 MG TAB (IMMEDIATE RELEASE) PO PRN ×2 (15:33→19:52)
[2021-02-15] MEDS: ceFAZolin 2000MG 2,000 MG/15 ML SYR IV SCH (16:23)
--- NOTE | 2021-02-15 16:59 | Orthopedic Progress Note ---
Date of Service February 15, 2021 Assessment & Plan (1) Degenerative joint disease of knee, right: Status post right total knee arthroplasty -Ancef x24 -DVT prophylaxis: SCDs, teds, 81 mg ASA twice daily -Weight-bear as tolerated right lower extremity -PT/OT -Postoperative x-ray demonstrates a well aligned well fixed prosthesis without fracture or dislocation -A.m. lab -Discharge planning home with outpatient PT Admission and Anticipated Discharge Date Admission Date: February 15, 2021 Subjective Post Operative Progress Note Patient seen sitting up in bed, comfortable, denies complaints, pain well controlled, no acute issues. Review of Systems Review of Systems: All systems reviewed & are unremarkable except as noted in HPI & below Constitutional: as per Subjective / HPI Physical Exam Physical Exam: RLE NVSI +EHL/FHL/TA/GS SILT grossly, +2 DP pulse, compartments soft NT, dressing cdi. Constitutional: WD/WN, vitals as above Results & Data ([facility]) Vital Signs (Past 12 Hours) Vital Signs Temp Pulse Pulse Resp BP Pulse Ox 02/15/21 15:27 78 18 152/82 H 96 02/15/21 14:30 36.5 C 76 18 142/85 H 96 02/15/21 13:26 76 18 129/78 97 02/15/21 12:57 65 16 119/71 97 02/15/21 12:30 36.9 C 72 16 104/75 95 02/15/21 12:20 36.5 C 73 14 115/67 95 02/15/21 12:10 36.8 C 69 15 114/70 93 02/15/21 12:00 69 14 106/68 94 02/15/21 11:50 74 14 103/70 95 02/15/21 11:40 76 13 101/67 97 02/15/21 11:30 77 17 98/52 L 97 02/15/21 11:23 36.2 C L 85 16 110/62 96 02/15/21 06:54 36.8 C 78 18 162/96 H 96
[2021-02-15] MEDS: DOCUSATE SODIUM 100 MG CAP PO SCH (20:06)
[2021-02-15] MEDS ORDERED: SENNA 8.6 MG TAB PO SCH (21:00)
[2021-02-16] MEDS: ceFAZolin 2000MG 2,000 MG/15 ML SYR IV SCH (00:25)
[2021-02-16] MEDS: KETOROLAC TROMETHAMINE 15 MG/ML VIAL IV SCH ×2 (01:42→07:39)
[2021-02-16] MEDS: ACETAMINOPHEN 500 MG TAB PO SCH (05:36)
[2021-02-16 06:30] LABS: Hematocrit (blood only) 35.9 % (42-52); Hemoglobin 12.7 g/dL (14.0-18.0); Mean Corpuscular Hemoglobin 30.2 pg (25-34); Mean Corpuscular Hgb Conc 35.4 g/dL (32-36); Mean Corpuscular Volume 85.5 fL (80-100); Mean Platelet Volume 9.3 fL (7.4-10.4); Platelet Count 289 K/uL (130-400); RDW Coefficient of Variation 12.4 % (11.5-14.5); RDW Standard Deviation 38.7 fL (36.4-46.3)
[2021-02-16 07:08] LABS: BUN Creatinine Ratio 23.9 (10-20); Calcium 8.2 mg/dl (8.5-10.1); Creatinine Clr Calc Pharmacy 135.9 ml/min; Est GFR (African American) 120.9; Est GFR (Non-African American) 104.3; Potassium 3.7 mmol/L (3.5-5.1)
--- NOTE | 2021-02-16 07:11 | Orthopedic Progress Note ---
Date of Service February 16, 2021 Assessment & Plan (1) Degenerative joint disease of knee, right: Status post right total knee arthroplasty POD#1 -Ancef x24 -DVT prophylaxis: SCDs, teds, 81 mg ASA twice daily -Weight-bear as tolerated right lower extremity -PT/OT -Postoperative x-ray demonstrates a well aligned well fixed prosthesis without fracture or dislocation -A.m. lab - as above, hgb 12.7 -Discharge planning home with outpatient PT Admission and Anticipated Discharge Date Admission Date: February 15, 2021 Subjective Post Operative Progress Note Patient seen sitting up in bed, comfortable, denies complaints, pain well controlled, no acute issues. Denies F/C/N/V/SOB/CP. Review of Systems Review of Systems: All systems reviewed & are unremarkable except as noted in HPI & below Constitutional: as per Subjective / HPI Physical Exam Physical Exam: RLE NVSI +EHL/FHL/TA/GS SILT grossly, +2 DP pulse, compartments soft NT, dressing cdi. Constitutional: WD/WN, vitals as above Results & Data ([facility]) Vital Signs (Past 12 Hours) Vital Signs Temp Pulse Pulse Resp BP BP Pulse Ox 02/16/21 02:27 36.5 C 71 16 118/70 97 02/15/21 22:57 36.6 C 77 16 132/80 96 02/15/21 19:59 36.4 C L 81 20 158/89 H 93 Laboratory Results 02/16/21 02/16/21 02/15/21 Range/Units 06:04 06:04 20:51 WBC 14.10 H (4.8-10.8) K/uL RBC 4.20 L (4.7-6.1) M/uL Hgb 12.7 L (14.0-18.0) g/dL Hct 35.9 L (42-52) % MCV 85.5 (80-100) fL MCH 30.2 (25-34) pg MCHC 35.4 (32-36) g/dL RDW Std Deviation 38.7 (36.4-46.3) fL RDW Coeff of Aguilar 12.4 (11.5-14.5) % Plt Count 289 (130-400) K/uL MPV 9.3 (7.4-10.4) fL Sodium 141 (136-145) mmol/L Potassium 3.7 (3.5-5.1) mmol/L Chloride 110 H (98-107) mmol/L Carbon Dioxide 26 (21-32) mmol/L Anion Gap 5.0 (3-11) BUN 16 (7-18) mg/dl Creatinine 0.66 (0.6-1.4) mg/dl Est Cr Clr Drug Dosing 135.9 ml/min Est GFR ( Amer) 120.9 Est GFR (Non-Af Amer) 104.3 BUN/Creatinine Ratio 23.9 H (10-20) Glucose 125 H (70-99) mg/dl POC Glucose 148 H (70-99) mg/dl Calcium 8.2 L (8.5-10.1) mg/dl 02/15/21 02/15/21 Range/Units 16:26 11:25 WBC (4.8-10.8) K/uL RBC (4.7-6.1) M/uL Hgb (14.0-18.0) g/dL Hct (42-52) % MCV (80-100) fL MCH (25-34) pg MCHC (32-36) g/dL RDW Std Deviation (36.4-46.3) fL RDW Coeff of Aguilar (11.5-14.5) % Plt Count (130-400) K/uL MPV (7.4-10.4) fL Sodium (136-145) mmol/L Potassium (3.5-5.1) mmol/L Chloride (98-107) mmol/L Carbon Dioxide (21-32) mmol/L Anion Gap (3-11) BUN (7-18) mg/dl Creatinine (0.6-1.4) mg/dl Est Cr Clr Drug Dosing ml/min Est GFR ( Amer) Est GFR (Non-Af Amer) BUN/Creatinine Ratio (10-20) Glucose (70-99) mg/dl POC Glucose 181 H 143 H (70-99) mg/dl Calcium (8.5-10.1) mg/dl
--- NOTE | 2021-02-16 08:06 | Anesthesiology Progress Note ---
Date of Service February 16, 2021 Anesthesia Post Procedure Vital Signs Vital Signs: Temp Pulse Pulse Pulse Resp BP BP 02/16/21 07:25 36.6 C 78 16 145/86 H 02/16/21 02:27 36.5 C 71 16 118/70 02/15/21 22:57 36.6 C 77 16 132/80 02/15/21 19:59 36.4 C L 81 20 158/89 H 02/15/21 15:27 78 18 152/82 H 02/15/21 14:30 36.5 C 76 18 142/85 H 02/15/21 13:26 76 18 129/78 02/15/21 12:57 65 16 119/71 02/15/21 12:30 36.9 C 72 16 104/75 02/15/21 12:20 36.5 C 73 14 115/67 02/15/21 12:10 36.8 C 69 15 114/70 02/15/21 12:00 69 14 106/68 02/15/21 11:50 74 14 103/70 02/15/21 11:40 76 13 101/67 02/15/21 11:30 77 17 98/52 L 02/15/21 11:23 36.2 C L 85 16 110/62 Pulse Ox 02/16/21 07:25 94 02/16/21 02:27 97 02/15/21 22:57 96 02/15/21 19:59 93 02/15/21 15:27 96 02/15/21 14:30 96 02/15/21 13:26 97 02/15/21 12:57 97 02/15/21 12:30 95 02/15/21 12:20 95 02/15/21 12:10 93 02/15/21 12:00 94 02/15/21 11:50 95 02/15/21 11:40 97 02/15/21 11:30 97 02/15/21 11:23 96 Pain Intensity Right Knee: Pain Intensity: 0 Notes Mental Status: alert / awake / arousable Nausea / Vomiting: adequately controlled Pain: adequately controlled Airway Patency, RR, SpO2: stable & adequate BP & HR: stable & adequate Hydration State: stable & adequate Neuraxial Anesthesia: was administered and sensory block resolved Anesthetic Complications: no major complications apparent and Pt Satisfied with anesthetic care
[2021-02-16] MEDS ORDERED: MULTIVITAMIN TAB PO SCH (09:00)
[2021-02-16] MEDS ORDERED: ASPIRIN 81 MG ECTAB PO SCH (09:00)
[2021-02-16] MEDS ORDERED: LISINOPRIL/HCTZ 20/12.5MG 1 TAB TAB PO SCH (09:00)
[2021-02-16] MEDS ORDERED: PRAVASTATIN SOD 40 MG TAB PO SCH (09:00)
[2021-02-16] MEDS: DOCUSATE SODIUM 100 MG CAP PO SCH (09:03)
[2021-02-16] MEDS: INSULIN ASPART 100 UNITS/ML 3 ML PEN SC SCH ×2 (09:06→12:24)
[2021-02-16] MEDS: oxyCODONE HCL IR 5 MG TAB (IMMEDIATE RELEASE) PO PRN (09:14)
--- NOTE | 2021-02-16 21:51 | Discharge Summary ---
Date of Service February 16, 2021 Admission HPI Per Admitting Provider The patient is a 60 year old male who presents with complaints of severe right knee pain and DJD. The patient has failed outpatient conservative treatments to this point which included NSAIDS, IA corticosteroid injection, home exercise/walking program. The patient's pain and limited function have progressed to the point where they severely hinder their activities of daily living and they no longer tolerate exercise programs. They are requesting to proceed with total knee replacement surgery. Principal Diagnosis Right total knee replacement Discharge Exam RLE NVSI +EHL/FHL/TA/GS SILT grossly, +2 DP pulse, compartments soft NT, dressing cdi. Constitutional WD/WN, vitals as above Discharge Data Allergies Allergy/AdvReac Type Severity Reaction Status Date / Time No Known Allergies Allergy Verified 02/15/21 07:01 Procedures Performed Operation Date: 02/15/21 09:00 Actual Procedures p Right Total Knee Arthroplasty(Right) - Hermes Acuña DO Ordered Studies 02/15/21 05:00 US - OR guided needle placemen Routine Hospital Course (1) Degenerative joint disease of knee, right: The patient is a 60 -year-old male who presents with long standing history of severe right knee DJD and failed outpatient conservative treatments. The patient's symptoms have progressed to the point where it has been difficult to perform even normal activities of daily living. I indicated the patient for a right total knee arthroplasty, the risks, benefits and complications of the procedure include but not limited to infection, bleeding, damage to bone, nerves, vessels, surrounding soft tissue, may develop blood clots, loss of function, leg length discrepancy, dislocation, failure of the components, loosening of the components, the need for additional surgery and . The patient wished to proceed with surgery at this time and informed consent was obtained. Hospital Course: On 02/15/21 the patient was taken to the operating room, adequate anesthesia administered and underwent a right total knee arthroplasty. The patient tolerated the procedure well and was taken to the PACU in stable condition. Post-operatively the patient was started on a DVT ppx medication and given appropriate IV antibiotics. Consults were placed to physical therapy, occupational therapy and case management. On POD#1, the patient did well overnight and their pain was well controlled. Labs were drawn and the Hgb was 12.7. The patient progressed well with PT. Dressings were changed at this time and the incision was clean, dry and intact. The patients hospital stay was relatively uneventful and they were deemed stable by the orthopedic team and consultants to be discharged home with on 02/16/21. Discharge Instructions: Upon discharge the patient may weight bear as tolerates through their operative extremity. They were instructed to keep the incision clean and dry at all times. The patient may shower but should not submerge the incision, avoid bathing, pools and hot tubs. The patient was given a script for pain medication and should take as instructed. The patient was given a script for DVT ppx 81mg ASA BID and should take as directed. The patient was instructed to not drive or travel for long distances until cleared to do so. If the patient develops any symptoms of fevers, chills, nausea, vomiting, increased redness, swelling, pain or drainage from the surgical site, they should notify the office and/or proceed to the nearest emergency room. The patient should follow up in 10-14 days after surgery for their routine post-operative follow-up appointment and should call the office, to confirm the date and time. Status post right total knee arthroplasty POD#1 -Ancef x24 -DVT prophylaxis: SCDs, teds, 81 mg ASA twice daily -Weight-bear as tolerated right lower extremity -PT/OT -Postoperative x-ray demonstrates a well aligned well fixed prosthesis without fracture or dislocation -A.m. lab - as above, hgb 12.7 -Discharge planning home with outpatient PT Total Time Total Time Spent Total Time Spent (In Minutes): 30 Discharge Plan Discharge Items Patient Disposition: Home - Self-Care Reason For Visit: Right Knee Degenerative Joint Disease Discharge Diagnosis: Right total knee replacement Condition on Discharge: Good Activity: Per Instructions section Lifting: Wait until after follow-up appointment Bathing: Keep incision dry Bathing Comment: No bathing, pools or hot tubs. Sexual Activity: Wait until after follow-up appointment Exercise/Sports: Wait until after follow-up appointment Driving/Machine Use: No driving. Weightbearing: Full weightbearing Non-emergency contact: Primary Care Provider and Surgeon Call non-emergency contact if: you have any medication questions, your symptoms worsen, your pain is not controlled, your pain is worsening, your pain is unusual for you, your pain is concerning for you, you have a fever, your temperature is above 101, your wound has increased redness, your wound has increased drainage and your wound pain has increased Follow-up/Referrals: Ck Al V., [Primary Care Provider] - Diet: Carb Consistent or DM2 Addtl Attending Provider Instructions: ACTIVITY RECOMMENDATIONS: SELF CARE INSTRUCTIONS AFTER TOTAL KNEE REPLACEMENT A. You may need to continue a physical therapy program after discharge from the hospital. There are several options available to you. Your doctor will assist you in selecting the best one for you. 1. An out-patient facility 2 to 3 times a week for therapy or home therapy. 2. Continue working on all exercises taught to you in the hospital. Your goals should be to increase bending of your knee to 90 degrees and beyond and to fully straighten your knee. B. You may progress at your own pace from walking with a walker or crutches to a cane; then to no assistive devices. C. Make walking a part of your daily routine. Be up as much as comfortable with rest periods throughout the day. Rest with leg elevation is very important. Use the ice wrap frequently for the first 3-4 weeks. D. There are no restrictions on activities. You may ride in a car, shop, participate in tilesetter and all social activities. E. Wear the long elastic stockings (MEAGAN hose) 20 hours a day for 2 weeks after surgery. They can be removed several times a day for laundering and for a bath. F. You may shower, no tub baths until cleared by your doctor. SPECIAL CARE INSTRUCTIONS: VERY IMPORTANT TO READ AND REVIEW A. There are a few signs you need to watch for after you are home. Call [facility] if you notice any of the followin. Increased severe knee pain. Some pain is expected especially when you exercise. 2. Increased swelling in your leg or knee; pain or swelling of the calf muscle in either lower leg. 3. Any fluid drainage from the incision. 4. Shortness of breath or chest pain. B. Please call [facility] at if you have any concerns or questions about your operation or recovery. The doctor or his nurse will return your call promptly. C. You must take antibiotics before dental work, bladder, bowel or other surgery. Your doctor will provide you with a permanent care to carry describing this precaution. IMPORTANT: * REMEMBER TO TAKE ASPIRIN, 81 MG, TWICE DAILY FOR 4 WEEKS UNLESS OTHERWISE DIRECTED. THIS IS YOUR BLOOD THINNER. * HIGH RISK PATIENTS MAY BE PRESCRIBED A STRONGER BLOOD THINNER. THIS WILL BE PROVIDED AT DISCHARGE. * CALL IF INCREASED PAIN, REDNESS, DRAINAGE OR FEVER GREATER THAT 101. * WEAR MEAGAN HOSE 20 HOURS PER DAY FOR 2 WEEKS. *DERMABOND Prineo- This is a mesh tape dressing that is covered with glue. It should remain in place until the incision is properly healed, usually 10-14 days. This dressing is designed to naturally slough off. You may trim the excess mesh tape as it peels off. Incision may be briefly wet in a shower. Dry immediately by blotting with a clean, dry towel. Do not bath or swim until instructed by your doctor. Do not scratch, rub, or pick at the dressing. Do not apply any topical ointments or lotions until dressing is completely removed and/or instructed by your doctor. There may be a small piece of suture material at one end of your incision. Do not pull or trim this. If it is bothersome or catching on clothing, you may cover it with a band-aid. *IF ISLAND DRESSING IN PLACE, MAY REMOVE KEEPING DERMABOND PRINEO INTACT. FOLLOW UP VISIT: If appointment is not already scheduled: Please call [facility] to make a follow-up appointment for 2 weeks after your surgery at . Pending Studies at Discharge: No Stand-Alone Forms: My [facility] [employer], Opioid Pain Management, Smoking Cessation Medications and DC Order Prescriptions: New acetaminophen 500 mg Tablet 1,000 mg PO Q8 PRN (Reason: fever or pain) Qty: 90 RF: 0 aspirin 81 mg Tablet,Delayed Release (Dr/Ec) 81 mg PO BID Qty: 56 RF: 0 celecoxib [Celebrex] 200 mg Capsule 200 mg PO BID PRN (Reason: pain/inflammation) Qty: 28 RF: 0 oxycodone 5 mg Tablet 5 mg PO Q6H MDD 4 PRN (Reason: pain) Qty: 30 RF: 0 sennosides [Senokot] 8.6 mg Tablet 17.2 mg PO HS PRN (Reason: constipation) Qty: 28 RF: 0 Continued metformin 500 mg Tablet Extended Release 24 Hr 500 mg PO BID RF: 0 lisinopril-hydrochlorothiazide 20-12.5 mg Tablet 1 tab PO QAM RF: 0 pravastatin 40 mg Tablet 40 mg PO QAM RF: 0 multivitamin with minerals [Men's One Daily] Tablet 1 tab PO QAM RF: 0 Discontinued acetaminophen 500 mg Tablet 1,000 mg PO Q8 PRN (Reason: pain/fevers) Qty: 90 RF: 0 meloxicam 15 mg Tablet 15 mg PO QAM RF: 0 aspirin 81 mg Tablet 81 mg PO QAM RF: 0 Discharge Orders: Discharge Order (Routine); Ordered 02/16/21 Ordered By: Hermes Madrid/Other Patient Handouts: DVT Post Op Prevention, Managing Type 2 Diabetes, Managing Diabetes: The A1C Test Admission Data Admit Date/Time: 02/15/21 11:23 Attending Provider: Hermes Acuña Admit Provider: Hermes Acuña Primary Care Provider: Ck Al V. Other Interventions: Discharge Summary Assessment (RN) Last Done: 02/16/21 12:11
[2021-02-17] MEDS ORDERED: CeleBREX 200 MG CAP PO SCH (09:00)
== END 2021-02-16 13:32 | disposition home or self-care (01) | DRG 470 ==
LOC: 3E 06:37 → ASU 06:37 → OBSVTOIN 11:23